=== PATIENT | female | born 1950 | race Caucasian/White ===

== ENCOUNTER 2018-04-03 20:30 | Emergency (ER) | payer MEDICARE, MEDICAID ==
[2018-04-03] MEDS ORDERED: Albuterol-Ipratrop 3 mg / 0.5 (3 ml) UD ONE ×2 (20:42→20:53)
[2018-04-03 20:46] VITALS: TEMP 98
[2018-04-03] MEDS ORDERED: Albuterol-Ipratrop 3 mg / 0.5 (3 ml) UD INH STA (20:46)
[2018-04-03] MEDS ORDERED: Magnesium Sulfate 1 gm in D5W 1 GM/100 ML BAG IVPB ONE (20:53)
[2018-04-03] MEDS: Magnesium Sulfate 1 gm in D5W 1 GM/100 ML BAG IVPB SCH ×2 (20:59→23:31)
[2018-04-03 21:13] LABS: BASO # 0.1 K/uL (0.0-0.2); BASO % 0.8 % (0.0-2.0); EOS # 0.7 K/uL (0.0-0.7); HEMOGLOBIN 11.1 g/dL (11.0-16.0); LYMPH # 1.9 K/uL (1.0-4.3); LYMPH % 15.2 % (20.0-40.0); MEAN CELL VOLUME 86.1 fL (81.0-99.0); MEAN CORPUSCULAR HEMOGLOBIN 28.6 pg (27.0-31.0); MEAN CORPUSCULAR HGB CONC 33.3 g/dL (33.0-37.0); MEAN PLATELET VOLUME 8.6 fL (7.2-11.7); MONO # 0.9 K/uL (0.0-0.8); MONO % 6.9 % (0.0-10.0); NEUT # 8.9 K/uL (1.8-7.0); NEUT % 71.1 % (50.0-75.0); RBC 3.88 Mil/uL (3.80-5.20); RED CELL DISTRIBUTION WIDTH 12.4 % (11.5-14.5); WHITE BLOOD COUNT 12.5 K/uL (4.8-10.8)
--- NOTE | 2018-04-03 21:21 | C.PDOC ---
History Of Present Illness 67 y/o female presents to the ED complaining of shortness of breath and asthma exacerbation for 2 weeks, increasing today. Associated with a dry cough. Denies chest pain, fever, chills, vomiting, sputum production, hemoptysis, or other complaints. Additionally patient complains of chronic back pain secondary to herniated discs. Time Seen by Provider: 04/03/18 20:49 Chief Complaint (Nursing): Shortness Of Breath History Per: Patient History/Exam Limitations: no limitations Onset/Duration Of Symptoms: Days (x14) Current Symptoms Are (Timing): Worse Initiating Event: Upper Respiratory Illness Exacerbating Factor(s): Coughing Past Medical History Reviewed: Historical Data, Nursing Documentation, Vital Signs Vital Signs: Last Vital Signs Temp 98 F 04/03/18 20:37 Pulse 82 04/03/18 23:37 Resp 20 04/03/18 23:37 BP 180/72 H 04/03/18 23:37 Pulse Ox 98 04/03/18 23:37 - Medical History PMH: Asthma, Back Problems, Diabetes, HTN, Hypercholesterolemia Denies: Chronic Kidney Disease Surgical History: Cholecyst[facility] - [facility] INJECT/INFUSE NEC (06/05/14) Family History: States: [place], Diabetes, Hypertension - Social History Hx Alcohol Use: No Hx Substance Use: No - Immunization History Hx Tetanus Toxoid Vaccination: No Hx Influenza Vaccination: No Hx Pneumococcal Vaccination: No Review Of Systems Except As Marked, All Systems Reviewed And Found Negative. Constitutional: Negative for: Fever, Chills Cardiovascular: Negative for: Chest Pain Respiratory: Positive for: Cough, Shortness of Breath. Negative for: Hemoptysis , Sputum Gastrointestinal: Negative for: Nausea, Vomiting, Abdominal Pain Musculoskeletal: Positive for: Back Pain (chronic) Neurological: Negative for: Weakness, Headache, Dizziness Physical Exam - Physical Exam Appears: Non-toxic, No Acute Distress, Other (Morbidly obese) Skin: Normal Color, Warm, Dry Head: Atraumatic, Normacephalic Eye(s): bilateral: Normal Inspection, PERRL, EOMI Oral Mucosa: Moist Neck: Supple Chest: Symmetrical Cardiovascular: Rhythm Regular, No Murmur Respiratory: No Rales, No Rhonchi, Wheezing (Fine expiratory wheezing bilaterally) Gastrointestinal/Abdominal: Soft, No Tenderness, No Guarding Extremity: Normal ROM, Pedal Edema (Trace edema bilaterally), No Calf Tenderness , Capillary Refill (less than 2 sec) Pulses: Left Dorsalis Pedis: Normal, Right Dorsalis Pedis: Normal Neurological/Psych: Oriented x3, Normal Speech ED Course And Treatment - Laboratory Results Result Diagrams: 04/03/18 21:09 04/03/18 21:09 ECG: Interpreted By Me, Viewed By Me ECG Rhythm: Sinus Rhythm Interpretation Of ECG: Normal axis, normal intervals, with PVCs Rate From EC O2 Sat by Pulse Oximetry: 100 (NC) Pulse Ox Interpretation: Normal Medical Decision Making Medical Decision Making: Initial Impression: SOB, Asthma exacerbation Initial Plan: --EKG --CMP --Pro-BNP --Troponin I --CBC --Blood culture --Chest X-Ray --Duoneb x1 --Mag sulf 1 gm IV --Solu-Medrol 125 mg IVP --Reassessment and final disposition Disposition - Disposition Disposition Time: 23:00 Condition: FAIR - Clinical Impression Clinical Impression: Asthma exacerbation - Scribe Statement The provider has reviewed the documentation as recorded by the Bean Fam Provider Attestation: All medical record entries made by the Imeldaibruben were at my direction and personally dictated by me. I have reviewed the chart and agree that the record accurately reflects my personal performance of the history, physical exam, medical decision making, and the department course for this patient. I have also personally directed, reviewed, and agree with the discharge instructions and disposition.
[2018-04-03 21:43] LABS: CALCIUM 9.2 mg/dl (8.6-10.4); GFR NON-AFRICAN AMERICAN > 60
[2018-04-03 21:53] LABS: B-TYPE NATRIURETIC PEPTIDE 291 pg/mL (0-900)
[2018-04-03 21:56] LABS: ALBUMIN 4.4 g/dL (3.5-5.0); ALT/SGPT 25 U/L (9-52); AST/SGOT 39 U/L (14-36); BLOOD UREA NITROGEN 18 mg/dL (7-17)
[2018-04-03 22:03] VITALS: RESP 20
--- NOTE | 2018-04-03 23:03 | CP.PCM.HP ---
<Jacquie Castillo - Last Filed: 04/04/18 03:54> History of Present Illness - History of Present Illness History of Present Illness: History was obtained from patient and her daughter, Martha. Maria Guadalupe Pederson is a 37 yo female with a history of T2DM, OB, WILL, chronic LBP, HTN, and asthma who presents with SOB and back pain. Patient states that she always has issues with breathing but feels like it worsened over the past 2 weeks. She does not require supplemental O2 at home. She also endorses a cough that is usually dry but occasionally produces brown sputum. Denies fevers and chills. Denies sick contacts. Patient lives with her daughter and is essentially bedridden. She has chronic back pain and is supposed to be getting steroid injections next week. She stopped PT last month because it was too painful. The patient's daughter also reports that the patient is often noncompliant by missing many doctor's appointments. Patient endorses back pain throughout thoracic and lumbar region. The pain radiates down her legs (L>R). She also complains of chronic numbness and tingling of her legs, feet, and hands. The patient is unable to sleep lying flat, and she typically requires 5 pillows. The daughter reports frequently hearing the patient wake up gasping for air. 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 PMH: Chronic pain T2DM Obesity WILL- noncompliant with CPAP HTN Asthma PSH: Cholecystectomy in 1999 Meds: Losartan/HCTZ 100/25 mg PO daily Metformin 1000 mg PO BID Lantus 80 units QHS Gabapentin 800 mg PO BID Motrin 800 mg PO BID Albuterol 1 puff BID Albuterol nebulizer q4hrs PRN ?Muscle relaxant All: codeine- pruritic rash, sore throat FH: grandson- asthma SH: lives with daughter unemployed denies alcohol, tobacco, and drugs PMD: Dr. Zavala Pain: Cristobal Cardio: unknown Present on Admission - Present on Admission Any Indicators Present on Admission: No History of DVT/PE: No History of Uncontrolled Diabetes: No Urinary Catheter: No Decubitus Ulcer Present: No History Surgical Site Infection Following: None Review of Systems - Constitutional Constitutional: Daytime Sleepiness, Fatigue, Sleep Apnea. absent: Fever, Frequent Falls - EENT Eyes: absent: Blurred Vision, Change in Vision Ears: absent: Decreased Hearing Nose/Mouth/Throat: Nasal Congestion, Sore Throat - Cardiovascular Cardiovascular: Dyspnea, Dyspnea on Exertion, Pedal Edema. absent: Chest Pain, Palpitations - Respiratory Respiratory: Cough, Dyspnea on Exertion, Change in Mucous Color, Pain with Coughing. absent: Hemoptysis - Gastrointestinal Gastrointestinal: absent: Abdominal Pain, Constipation, Diarrhea, Dyspepsia, Nausea, Vomiting - Genitourinary Genitourinary: Urinary Incontinence, Urinary Urgency. absent: Difficulty Urinating, Dysuria, Hematuria - Reproductive: Female Reproductive:Female: Post Menopausal - Menstruation Menstruation: Post Menopausal - Musculoskeletal Musculoskeletal: Arthralgias, Back Pain, Numbness, Radiating Pain into Limb, Tingling - Integumentary Integumentary: absent: Lesions, Pruritus - Neurological Neurological: Numbness, Tingling, Weakness. absent: Frequent Falls, Headaches - Psychiatric Psychiatric: Anhedonia, Depression, Hopelessness - Endocrine Endocrine: Fatigue. absent: Palpitations - Hematologic/Lymphatic Hematologic: absent: Easy Bleeding, Easy Bruising, Lymphadenopathy Past Patient History - Infectious Disease Hx of Infectious Diseases: None - Tetanus Immunizations Tetanus Immunization: Unknown - Past Medical History & Family History Past Medical History?: Yes Past Family History: Reviewed and not pertinent - Past Social History Smoking Status: Never Smoked Chewing Tobacco Use: No Cigar Use: No Alcohol: None Drugs: Denies Home Situation {Lives}: With Family (daughter) Domestic Violence: Negative - CARDIAC Hx Hypercholesterolemia: Yes Hx Hypertension: Yes - PULMONARY Hx Asthma: Yes Hx Sleep Apnea: Yes - NEUROLOGICAL Hx Neurological Disorder: No - HEENT Hx HEENT Problems: No - RENAL Hx Chronic Kidney Disease: No - ENDOCRINE/METABOLIC Hx Endocrine Disorders: Yes Hx Diabetes Mellitus Type 2: Yes - HEMATOLOGICAL/ONCOLOGICAL Hx Blood Disorders: No - INTEGUMENTARY Hx Dermatological Problems: No - MUSCULOSKELETAL/RHEUMATOLOGICAL Hx Musculoskeletal Disorders: Yes Hx Arthritis: Yes Hx Back Pain: Yes Hx Herniated Disk: Yes Hx Osteoarthritis: Yes Hx Spinal Stenosis: Yes Hx Unsteady Gait: Yes - GASTROINTESTINAL Hx Gastrointestinal Disorders: No - GENITOURINARY/GYNECOLOGICAL Hx Genitourinary Disorders: No - PSYCHIATRIC Hx Substance Use: No - SURGICAL HISTORY Hx Cholecystectomy: Yes - ANESTHESIA Hx Anesthesia: Yes Hx Anesthesia Reactions: No Meds Home Medications: Home Medication List Medication Instructions Recorded Confirmed Type Methylprednisolone [Medrol Dose 4 mg PO DAILY #21 mg 04/04/18 Rx Pack (21 tabs)] Pantoprazole Sodium [Protonix] 40 mg PO DAILY #30 ect 04/04/18 Rx traMADol [Ultram] 25 mg PO Q8 #20 tab 04/04/18 Rx Allergies/Adverse Reactions: Allergies Allergy/AdvReac Type Severity Reaction Status Date / Time codeine Allergy ITCHING Verified 04/03/18 20:43 Physical Exam - Constitutional Appears: Non-toxic, In Acute Distress - Head Exam Head Exam: ATRAUMATIC, NORMAL INSPECTION, NORMOCEPHALIC - Eye Exam Eye Exam: EOMI, Normal appearance, PERRL - ENT Exam ENT Exam: Mucous Membranes Moist, Normal Exam - Neck Exam Neck exam: Positive for: Normal Inspection - Respiratory Exam Respiratory Exam: Clear to Auscultation Bilateral - Cardiovascular Exam Cardiovascular Exam: REGULAR RHYTHM, +S1, +S2 - GI/Abdominal Exam GI & Abdominal Exam: Normal Bowel Sounds, Soft. absent: Tenderness Additional comments: obese - Rectal Exam Rectal Exam: Deferred - Extremities Exam Extremities exam: Positive for: pedal edema (1+), pedal pulses present - Back Exam Back exam: paraspinal tenderness Additional comments: kyphotic - Neurological Exam Neurological exam: Alert, CN II-XII Intact, Oriented x3 - Psychiatric Exam Psychiatric exam: Anxious, Depressed - Skin Skin Exam: Dry, Intact, Normal Color, Warm Results - Vital Signs Recent Vital Signs: Last Vital Signs Temp 98 F 04/03/18 20:37 Pulse 86 04/03/18 22:02 Resp 20 04/03/18 22:02 BP 186/75 H 04/03/18 22:02 Pulse Ox 98 04/03/18 22:02 - Labs Result Diagrams: 04/03/18 21:09 04/03/18 21:09 Labs: Laboratory Results - last 24 hr 04/03/18 04/03/18 21:09 21:09 WBC 12.5 H RBC 3.88 Hgb 11.1 Hct 33.4 L MCV 86.1 MCH 28.6 MCHC 33.3 RDW 12.4 Plt Count 322 MPV 8.6 Neut % (Auto) 71.1 Lymph % (Auto) 15.[address] [place] % (Auto) 6.9 Eos % (Auto) 6.0 H Baso % (Auto) 0.8 Neut # (Auto) 8.9 H Lymph # (Auto) 1.9 [place] # (Auto) 0.9 H Eos # (Auto) 0.7 Baso # (Auto) 0.1 Sodium 134 Potassium 4.7 Chloride 98 Carbon Dioxide 21 L Anion Gap 20 BUN 18 H Creatinine 0.7 Est GFR ( Amer) > 60 Est GFR (Non-Af Amer) > 60 Random Glucose 148 H Calcium 9.2 Total Bilirubin 0.7 AST 39 H ALT 25 Alkaline Phosphatase 85 Troponin I < 0.0120 NT-Pro-B Natriuret Pep 291 Total Protein 9.1 H Albumin 4.4 Globulin 4.6 H Albumin/Globulin Ratio 1.0 Assessment & Plan - Assessment and Plan (Free Text) Assessment: Patient is a 67 yo female with chronic pain who presented with SOB and back pain. Patient was not in respiratory distress and CXR did not demonstrated acute disease. Patient had significant back pain radiating to her legs. Concluded SOB 2/2 pain. Plan: SOB with h/o asthma - WBC 12.5 - O2 sat 100% on RA - No accessory muscle use - CXR: no acute/active disease - Duoneb x2 - Mg sulfate 1 g x1 - Albuterol nebulizer q4hrs PRN - Albuterol inhaler BID Back pain - Discontinue Motrin - Gabapentin 800 mg PO BID - Toradol 30 mg x1 - Solu-medrol 125 mg x1 - Start tramadol 25 mg PO q8hrs PRN - PT consult WILL- sleep study ~3 months ago, 2/2 obesity - CPAP- encouraged patient to get machine - Encouraged patient to make lifestyle changes- diet, exercise HTN, chronic, poorly controlled - Losartan/HCTZ 100/25 mg PO daily T2DM, chronic - Metformin 1000 mg PO BID - Lantus 80 units QHS - ISS - Hypoglycemia protocol IVF: not indicated GI ppx: Protonix 40 mg PO daily VTE ppx: SCDs, Lovenox 40 mg SC daily Diet: heart healthy, low carb, low sodium Code status: full code <Nick Kaye P - Last Filed: 04/10/18 07:33> Results - Vital Signs Recent Vital Signs: Last Vital Signs Temp 98 F 04/03/18 20:37 Pulse 92 H 08/25/18 01:51 Resp 20 04/04/18 01:51 BP 123/75 04/04/18 01:51 Pulse Ox 98 04/04/18 01:51 - Labs Result Diagrams: 04/03/18 21:09 04/03/18 21:09 Attending/Attestation - Attestation I have personally seen and examined this patient.: Yes I have fully participated in the care of the patient.: Yes I have reviewed all pertinent clinical information: Yes Notes (Text): See note on the same day of admission. 04/10/18 07:32
[2018-04-03] MEDS ORDERED: Dextrose 50% SYRINGE Inj (50 ml) IV PRN (23:11)
[2018-04-03] MEDS ORDERED: Glucagon Recombinant 1 mg Inj IM PRN (23:11)
[2018-04-04] MEDS ORDERED: Tramadol 25 mg PO STA (00:37)
[2018-04-04 01:52] VITALS: BP 123/75; PULSE 92; O2SAT 98
--- NOTE | 2018-04-04 04:00 | CP.PCM.DIS ---
<Jacquie Castillo - Last Filed: 04/04/18 03:55> Provider - Provider Date of Admission: 04/03/18 22:56 Attending physician: Nick Kaye MD Primary care physician: Dr. Zavala Consults: none Time Spent in preparation of Discharge (in minutes): 45 Diagnosis - Discharge Diagnosis (1) Chronic back pain Status: Chronic Priority: High (2) SOB (shortness of breath) Status: Resolved Priority: High (3) WILL (obstructive sleep apnea) Status: Chronic Priority: Medium (4) T2DM (type 2 diabetes mellitus) Status: Chronic Priority: Medium (5) HTN (hypertension) Status: Chronic Priority: Medium Hospital Course - Lab Results Lab Results: Most Recent Lab Values WBC 12.5 K/uL (4.8-10.8) H 04/03/18 21:09 RBC 3.88 Mil/uL (3.80-5.20) 04/03/18 21:09 Hgb 11.1 g/dL (11.0-16.0) 04/03/18 21:09 Hct 33.4 % (34.0-47.0) L 04/03/18 21:09 MCV 86.1 fL (81.0-99.0) 04/03/18 21:09 MCH 28.6 pg (27.0-31.0) 04/03/18 21:09 MCHC 33.3 g/dL (33.0-37.0) 04/03/18 21:09 RDW 12.4 % (11.5-14.5) 04/03/18 21:09 Plt Count 322 K/uL (130-400) 04/03/18 21:09 MPV 8.6 fL (7.2-11.7) 04/03/18 21:09 Neut % (Auto) 71.1 % (50.0-75.0) 04/03/18 21:09 Lymph % (Auto) 15.2 % (20.0-40.0) L 04/03/18 21:09 [place] % (Auto) 6.9 % (0.0-10.0) 04/03/18 21:09 Eos % (Auto) 6.0 % (0.0-4.0) H 04/03/18 21:09 Baso % (Auto) 0.8 % (0.0-2.0) 04/03/18 21:09 Neut # (Auto) 8.9 K/uL (1.8-7.0) H 04/03/18 21:09 Lymph # (Auto) 1.9 K/uL (1.0-4.3) 04/03/18 21:09 [place] # (Auto) 0.9 K/uL (0.0-0.8) H 04/03/18 21:09 Eos # (Auto) 0.7 K/uL (0.0-0.7) 04/03/18 21:09 Baso # (Auto) 0.1 K/uL (0.0-0.2) 04/03/18 21:09 Sodium 134 mmol/L (132-148) 04/03/18 21:09 Potassium 4.7 mmol/L (3.6-5.2) 04/03/18 21:09 Chloride 98 mmol/L (98-107) 04/03/18 21:09 Carbon Dioxide 21 mmol/L (22-30) L 04/03/18 21:09 Anion Gap 20 (10-20) 04/03/18 21:09 BUN 18 mg/dL (7-17) H 04/03/18 21:09 Creatinine 0.7 mg/dL (0.7-1.2) 04/03/18 21:09 Est GFR ( Amer) > 60 04/03/18 21:09 Est GFR (Non-Af Amer) > 60 04/03/18 21:09 Random Glucose 148 mg/dL (65-105) H 04/03/18 21:09 Calcium 9.2 mg/dl (8.6-10.4) 04/03/18 21:09 Total Bilirubin 0.7 mg/dL (0.2-1.3) 04/03/18 21:09 AST 39 U/L (14-36) H 04/03/18 21:09 ALT 25 U/L (9-52) 04/03/18 21:09 Alkaline Phosphatase 85 U/L (38-126) 04/03/18 21:09 Troponin I < 0.0120 ng/mL (0.00-0.120) 04/03/18 21:09 NT-Pro-B Natriuret Pep 291 pg/mL (0-900) 04/03/18 21:09 Total Protein 9.1 g/dL (6.3-8.3) H 04/03/18 21:09 Albumin 4.4 g/dL (3.5-5.0) 04/03/18 21:09 Globulin 4.6 gm/dL (2.2-3.9) H 04/03/18 21:09 Albumin/Globulin Ratio 1.0 (1.0-2.1) 04/03/18 21:09 - Hospital Course Hospital Course: Maria Guadalupe Pederson is a 37 yo female with a history of T2DM, OB, WILL, chronic LBP, HTN, and asthma who presents with SOB and back pain. Patient states that she always has issues with breathing but feels like it worsened over the past 2 weeks. She does not require supplemental O2 at home. She also endorses a cough that is usually dry but occasionally produces brown sputum. Denies fevers and chills. Denies sick contacts. Patient lives with her daughter and is essentially bedridden. She has chronic back pain and is supposed to be getting steroid injections next week. She stopped PT last month because it was too painful. The patient's daughter also reports that the patient is often noncompliant by missing many doctor's appointments. Patient endorses back pain throughout thoracic and lumbar region. The pain radiates down her legs (L>R). She also complains of chronic numbness and tingling of her legs, feet, and hands. The patient is unable to sleep lying flat, and she typically requires 5 pillows. The daughter reports frequently hearing the patient wake up gasping for air. 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 It was explained to the patient and her family that she does not appear to have an asthma exacerbation or PNA and that her SOB is likely 2/2 her chronic issues of pain. Thus, admission was offered to the patient for systemic steroids if she desired. Patient was given Solu-Medrol, toradol, and tramadol in the ED, which were well tolerated. Prior to the patient moving from the ED to the floor , she decided she would rather go home and keep her appointment with her pain management physician for localized steroid injections. The patient was discharged with tramadol, Medrol dose pack, and Protonix. Upon discharge, the patient did not have shortness of breath. Her vitals were stable. She tolerated all medications well without side effects. Discharge Exam - Head Exam Head Exam: ATRAUMATIC, NORMAL INSPECTION, NORMOCEPHALIC - Eye Exam Eye Exam: EOMI, Normal appearance - ENT Exam ENT Exam: Mucous Membranes Moist, Normal Exam - Neck Exam Neck exam: Normal Inspection - Respiratory Exam Respiratory Exam: Clear to PA & Lateral, NORMAL BREATHING PATTERN - Cardiovascular Exam Cardiovascular Exam: REGULAR RHYTHM, +S1, +S2 - GI/Abdominal Exam GI & Abdominal Exam: Normal Bowel Sounds, Soft, Unremarkable. absent: Tenderness Additional comments: obese - Rectal Exam Rectal Exam: Deferred - Extremities Exam Extremities exam: normal capillary refill, pedal edema (1+), pedal pulses present - Back Exam Back exam: paraspinal tenderness, tenderness - Neurological Exam Neurological exam: Alert, CN II-XII Intact, Oriented x3 - Psychiatric Exam Psychiatric exam: Normal Affect, Normal Mood - Skin Skin Exam: Dry, Intact, Normal Color, Warm Discharge Plan - Discharge Medications Prescriptions: Methylprednisolone [Medrol Dose Pack (21 tabs)] 4 mg PO DAILY #21 mg Pantoprazole Sodium [Protonix] 40 mg PO DAILY #30 ect traMADol [Ultram] 25 mg PO Q8 #20 tab - Follow Up Plan Condition: FAIR Disposition: HOME/ ROUTINE Patient education suggested?: Yes Additional Instructions: Patient is cleared for discharge as per Dr. Kaye. Patient is instructed to keep her appointment with her pain management physician, Dr. Jain, for steroid injections. The patient will be sent home with the following prescriptions: Medrol dose pack- take as instructed on package Tramadol 25 mg- take one by mouth every 8 hours as needed for pain Protonix 40 mg- take one by mouth daily The patient should NOT take Motrin while taking steroids. The patient should check her blood sugar levels before each meal and at night as steroids tend to increase blood glucose. The patient was encouraged to follow-up with the physician with whom she completed her sleep study with as it is very important to obtain a CPAP machine for her sleep apnea. The patient was also encouraged to restart physical therapy as soon as possible. If symptoms recur or worsen, the patient was advised to return to the ED. This was all discussed with the patient and her daughter, who acknowledge understanding and agree. <ApolinarkishasarayNick P - Last Filed: 04/10/18 07:34> Hospital Course - Lab Results Lab Results: Micro Results 04/03/18 23:31 Blood Blood Culture - Final NO GROWTH AFTER 5 DAYS 04/03/18 23:31 Blood Gram Stain - Final TEST NOT PERFORMED 04/03/18 21:00 Blood Blood Culture - Final NO GROWTH AFTER 5 DAYS 04/03/18 21:00 Blood Gram Stain - Final TEST NOT PERFORMED Most Recent Lab Values WBC 12.5 K/uL (4.8-10.8) H 04/03/18 21:09 RBC 3.88 Mil/uL (3.80-5.20) 04/03/18 21:09 Hgb 11.1 g/dL (11.0-16.0) 04/03/18 21:09 Hct 33.4 % (34.0-47.0) L 04/03/18 21:09 MCV 86.1 fL (81.0-99.0) 04/03/18 21:09 MCH 28.6 pg (27.0-31.0) 04/03/18 21:09 MCHC 33.3 g/dL (33.0-37.0) 04/03/18 21:09 RDW 12.4 % (11.5-14.5) 04/03/18 21:09 Plt Count 322 K/uL (130-400) 04/03/18 21:09 MPV 8.6 fL (7.2-11.7) 04/03/18 21:09 Neut % (Auto) 71.1 % (50.0-75.0) 04/03/18 21:09 Lymph % (Auto) 15.2 % (20.0-40.0) L 04/03/18 21:09 [place] % (Auto) 6.9 % (0.0-10.0) 04/03/18 21:09 Eos % (Auto) 6.0 % (0.0-4.0) H 04/03/18 21:09 Baso % (Auto) 0.8 % (0.0-2.0) 04/03/18 21:09 Neut # (Auto) 8.9 K/uL (1.8-7.0) H 04/03/18 21:09 Lymph # (Auto) 1.9 K/uL (1.0-4.3) 04/03/18 21:09 [place] # (Auto) 0.9 K/uL (0.0-0.8) H 04/03/18 21:09 Eos # (Auto) 0.7 K/uL (0.0-0.7) 04/03/18 21:09 Baso # (Auto) 0.1 K/uL (0.0-0.2) 04/03/18 21:09 Sodium 134 mmol/L (132-148) 04/03/18 21:09 Potassium 4.7 mmol/L (3.6-5.2) 04/03/18 21:09 Chloride 98 mmol/L (98-107) 04/03/18 21:09 Carbon Dioxide 21 mmol/L (22-30) L 04/03/18 21:09 Anion Gap 20 (10-20) 04/03/18 21:09 BUN 18 mg/dL (7-17) H 04/03/18 21:09 Creatinine 0.7 mg/dL (0.7-1.2) 04/03/18 21:09 Est GFR ( Amer) > 60 04/03/18 21:09 Est GFR (Non-Af Amer) > 60 04/03/18 21:09 Random Glucose 148 mg/dL (65-105) H 04/03/18 21:09 Calcium 9.2 mg/dl (8.6-10.4) 04/03/18 21:09 Total Bilirubin 0.7 mg/dL (0.2-1.3) 04/03/18 21:09 AST 39 U/L (14-36) H 04/03/18 21:09 ALT 25 U/L (9-52) 04/03/18 21:09 Alkaline Phosphatase 85 U/L (38-126) 04/03/18 21:09 Troponin I < 0.0120 ng/mL (0.00-0.120) 04/03/18 21:09 NT-Pro-B Natriuret Pep 291 pg/mL (0-900) 04/03/18 21:09 Total Protein 9.1 g/dL (6.3-8.3) H 08/24/18 21:09 Albumin 4.4 g/dL (3.5-5.0) 04/03/18 21:09 Globulin 4.6 gm/dL (2.2-3.9) H 04/03/18 21:09 Albumin/Globulin Ratio 1.0 (1.0-2.1) 04/03/18 21:09 Attending/Attestation - Attestation I have personally seen and examined this patient.: Yes I have fully participated in the care of the patient.: Yes I have reviewed all pertinent clinical information, including history, physical exam and plan: Yes
[2018-04-04] MEDS ORDERED: (Novolog) Insulin Aspart, Recombinant 100 u/ml 10 ml vial SC SCH (07:30)
[2018-04-04] MEDS ORDERED: Enoxaparin 40 mg Syringe SC SCH (10:00)
--- NOTE | 2018-04-04 10:13 | RAD ---
Date of service: 04/03/2018 PROCEDURE: CHEST RADIOGRAPH, 1 VIEW HISTORY: SOB COMPARISON: Chest radiographs 11/13/2013. Yes FINDINGS: LUNGS: No definite infiltrate bilaterally. PLEURA: No pneumothorax or pleural fluid seen. CARDIOVASCULAR: Prominence of the pulmonary vascular is questioned which may indicate pulmonary vascular congestion. Cardiac silhouette poorly evaluated. Cardiomegaly not excluded. OSSEOUS STRUCTURES: No significant abnormalities. VISUALIZED UPPER ABDOMEN: Normal. OTHER FINDINGS: None. IMPRESSION: Questionable pulmonary vascular congestion. Clinically correlate further. No airspace disease demonstrated bilaterally.
--- NOTE | 2018-04-06 11:26 | CARD ---
APPROVED REPORT Date of service: 04/03/2018 EKG Measurement Heart [id number] <Conclusion> Sinus rhythm with occasional premature ventricular complexes Otherwise normal ECG
== END 2018-04-04 01:00 | disposition home or self-care (01) ==
LOC: C.ER 20:30 → C.9E 22:56 → OBSVTOIN 22:56 → INTOOBSV 22:56 → C.3T 22:56 → UNDOADMOB 22:56 → C.3T 04-04 01:00 → UNDODISOB 04-04 01:00 → C.3T 04-04 01:54
DX: J45.901 Unspecified asthma with (acute) exacerbation (principal); E11.9 Type 2 diabetes mellitus without complications; E78.00 Pure hypercholesterolemia, unspecified; G47.33 Obstructive sleep apnea (adult) (pediatric); I10 Essential (primary) hypertension; Z74.01 Bed confinement status
CPT/HCPCS: 71045; 80053; 83880; 84484; 85025; 87040; 93005; 94640; 94770; 96365; 96366; 96375; 99285; J1885; J2930; J3475

== ENCOUNTER 2018-07-23 12:59 | Inpatient (IN) | payer MEDICARE, MEDICAID ==
--- NOTE | 2018-07-23 13:54 | C.PDOC ---
History Of Present Illness 67 y/o female presents to the ED accompanied by daughter, sent from PMD's office for severe intractable back pain. Patient reports pain to the entire back which radiates down bilateral legs. Daughter notes patient has had pain for years, however 2 weeks ago she fell getting out of bed and pain worsened. Patient states her legs feel weak, though she is able to move extremities. She also reports right shoulder and arm pain for 5 days, which she attributes to pulling herself out of bed. Daughter denies any LOC, nausea, vomiting, head trauma, numbness, tingling, focal weakness, or other complaints. Daughter also notes patient has normal urge to urinate but has difficulty making it to bathroom in time. Time Seen by Provider: 07/23/18 13:18 Chief Complaint (Nursing): Back Pain History Per: Family (Daughter at bedside) History/Exam Limitations: no limitations Onset/Duration Of Symptoms: Days Current Symptoms Are (Timing): Still Present Past Medical History Reviewed: Historical Data, Nursing Documentation, Vital Signs Vital Signs: Last Vital Signs Temp 98.3 F 07/23/18 13:12 Pulse 68 07/23/18 13:12 Resp 24 07/23/18 13:12 BP 106/59 L 07/23/18 13:12 Pulse Ox 100 07/23/18 13:12 - Medical History PMH: Arthritis, Asthma, Back Problems, Diabetes, HTN, Hypercholesterolemia, Sleep Apnea Denies: Chronic Kidney Disease Surgical History: Cholecystectomy - [facility] Procedures INJECT/INFUSE NEC (06/05/14) Family History: States: [place], Diabetes, Hypertension - Social History Hx Alcohol Use: No Hx Substance Use: No - Immunization History Hx Tetanus Toxoid Vaccination: No Hx Influenza Vaccination: No Hx Pneumococcal Vaccination: No Review Of Systems Except As Marked, All Systems Reviewed And Found Negative. Constitutional: Positive for: Other (+ Fall, no LOC or head trauma). Negative for: Fever, Chills Eyes: Negative for: Vision Change Cardiovascular: Negative for: Chest Pain, Palpitations Respiratory: Negative for: Shortness of Breath Gastrointestinal: Negative for: Nausea, Vomiting, Abdominal Pain, Diarrhea Genitourinary: Positive for: Incontinence. Negative for: Dysuria, Frequency, Hematuria Musculoskeletal: Positive for: Back Pain, Leg Pain Skin: Negative for: Rash Neurological: Positive for: Weakness (to lower extremities). Negative for: Numbness, Headache Physical Exam - Physical Exam Additional Physical Exam Comments: Constitutional: No acute distress. Head: Normocephalic. Atraumatic. Eyes: PERRL. ENT: Moist mucous membranes. Neck: Supple. Cardiovascular: Regular rate. Radial pulse 2+ bilaterally. Chest: No tenderness. Respiratory: Clear to auscultation bilaterally. GI: Soft. Nontender. Nondistended. Back: Lumbar midline and right paraspinal tenderness. Musculoskeletal: Right tenderness to the anterior shoulder. No tenderness to lower extremities. Skin: No rash. Neurologic: Oriented x 3. Cranial nerves II-XII intact. Sensation to light touch intact to bilateral legs and saddle area. ED Course And Treatment - Laboratory Results Result Diagrams: 07/23/18 14:09 07/23/18 14:09 O2 Sat by Pulse Oximetry: 100 (RA) Pulse Ox Interpretation: Normal - Other Rad CXR X-Ray: Read By Radiologist Interpretation: Accession No. : [id number]. Patient Name / ID : DELMA PRIDE / [id number]. Exam Date : 07/23/2018 14:11:56 ( Approved ). Study Comment : Sex / Age : F / 67Y. Creator : Hien Bynum MD. Dictator : Hien Bynum MD. Labor Specialist : Core Carrier : Hien Bynum MD. Approver2 : Report Date : 07/23/2018 14:56:26. My Comment : . HISTORY: Intractable back pain. COMPARISON: Chest x-ray performed 04/03/18. TECHNIQUE: Chest, one view. FINDINGS: Examination limited by habitus and hypoinflation. LUNGS: Biapical pleural thickening. Bilateral central vascular prominence. Mild pulmonary venous congestion versus vascular crowding due to hypoinflation. No focal consolidation. Please note that chest x-ray has limited sensitivity for the detection of pulmonary masses. PLEURA: No significant pleural effusion identified. No definite pneumothorax . CARDIOVASCULAR: Cardiomegaly. No significant atherosclerotic calcification present. OSSEOUS STRUCTURES: No acute osseous abnormality identified. V ISUALIZED UPPER ABDOMEN: Unremarkable. OTHER FINDINGS: None. IMPRESSION: Cardiomegaly. Biapical pleural thickening. Bilateral central vascular prominence. Mild pulmonary venous congestion versus vascular crowding due to hypoinflation. Shoulder x-ray X-Ray: Read By Radiologist Interpretation: Accession No. : [id number]. Patient Name / ID : DELMA PRIDE / [id number]. Exam Date : 07/23/2018 14:13:54 ( Approved ). Study Com ment : Sex / Age : F / 67Y. Creator : Sarah Reeves V. Dictator : Sarah Reeves V. Labor Specialist : Core Carrier : Sarah Reeves V. Approver2 : Report Date : 07/23/2018 15:07:44. My Comment : . Date of service: 07/23/2018. PROCEDURE: Radiographs of the Right Shoulder. HISTORY: R shoulder pain, fall days ago. COMPARISON: No prior. FINDINGS: BONES: No fracture line seen. This osseous hypertrophy bordering the humeral tuberosities. Hypertrophic spurring here is 1 consideration. Some calcific rotator cuff tendinopathy and/or calcific bursitis blending with the right humeral cortex is another. A chip ossific fragments are believes less likely-no gross bulging of the thin fat planes here noted. JOINTS: Minimal acromioclavicular and glenohumeral joint arthrosis. SOFT TISSUES: Normal. OTHER FINDINGS: None. IMPRESSION: Probable degenerative- type changes cortical hypertrophy spurring bordering the humeral tuberosities. Some near contiguous calcific bursitis center calcific rotator cuff tendinopathy cannot be excluded. Medical Decision Making Medical Decision Making: Impression: Per note from Greg Zavala, patient to be admitted for intractable back pain Initial Plan: --EKG --CMP --CPK --CBC --UA --Urine culture --Right shoulder x-ray --Chest x-ray Discussed with Dr. Wesley, accepts to hospitalist service. Patient's pain not able to be controlled as outpatient or in ED. Likely requires rehab placement. Disposition - Disposition Disposition: HOSPITALIZED Disposition Time: 15:50 Condition: STABLE Forms: [employer] ([place]) - Clinical Impression Clinical Impression: Intractable back pain - Scribe Statement The provider has reviewed the documentation as recorded by the Bean Fam Provider Attestation: All medical record entries made by the Bean were at my direction and personally dictated by me. I have reviewed the chart and agree that the record accurately reflects my personal performance of the history, physical exam, medical decision making, and the department course for this patient. I have also personally directed, reviewed, and agree with the discharge instructions and disposition.
[2018-07-23 14:16] LABS: BASO # 0.1 K/uL (0.0-0.2); EOS % 0.3 % (0.0-4.0); HEMOGLOBIN 10.8 g/dL (11.0-16.0); LYMPH # 1.5 K/uL (1.0-4.3); LYMPH % 12.2 % (20.0-40.0); MEAN CELL VOLUME 88.3 fL (81.0-99.0); MEAN CORPUSCULAR HEMOGLOBIN 29.7 pg (27.0-31.0); MEAN CORPUSCULAR HGB CONC 33.7 g/dL (33.0-37.0); MEAN PLATELET VOLUME 8.8 fL (7.2-11.7); MONO # 1.5 K/uL (0.0-0.8); MONO % 11.9 % (0.0-10.0); NEUT # 9.3 K/uL (1.8-7.0); NEUT % 74.6 % (50.0-75.0); RBC 3.64 Mil/uL (3.80-5.20); RED CELL DISTRIBUTION WIDTH 13.3 % (11.5-14.5); WHITE BLOOD COUNT 12.4 K/uL (4.8-10.8)
[2018-07-23 14:32] LABS: ALB/GLOB RATIO 0.9 (1.0-2.1); ALBUMIN 3.8 g/dL (3.5-5.0); ALT/SGPT 254 U/L (9-52); AST/SGOT 245 U/L (14-36); BLOOD UREA NITROGEN 28 mg/dL (7-17); CALCIUM 8.6 mg/dl (8.6-10.4); GFR NON-AFRICAN AMERICAN 55
--- NOTE | 2018-07-23 14:59 | RAD ---
HISTORY: Intractable back pain COMPARISON: Chest x-ray performed 04/03/18 TECHNIQUE: Chest, one view. FINDINGS: Examination limited by habitus and hypoinflation. LUNGS: Biapical pleural thickening. Bilateral central vascular prominence. Mild pulmonary venous congestion versus vascular crowding due to hypoinflation. No focal consolidation. Please note that chest x-ray has limited sensitivity for the detection of pulmonary masses. PLEURA: No significant pleural effusion identified. No definite pneumothorax . CARDIOVASCULAR: Cardiomegaly. No significant atherosclerotic calcification present. OSSEOUS STRUCTURES: No acute osseous abnormality identified. VISUALIZED UPPER ABDOMEN: Unremarkable. OTHER FINDINGS: None. IMPRESSION: Cardiomegaly. Biapical pleural thickening. Bilateral central vascular prominence. Mild pulmonary venous congestion versus vascular crowding due to hypoinflation.
--- NOTE | 2018-07-23 15:11 | RAD ---
Date of service: 07/23/2018 PROCEDURE: Radiographs of the Right Shoulder HISTORY: R shoulder pain, fall days ago COMPARISON: No prior. FINDINGS: BONES: No fracture line seen. This osseous hypertrophy bordering the humeral tuberosities. Hypertrophic spurring here is 1 consideration. Some calcific rotator cuff tendinopathy and/or calcific bursitis blending with the right humeral cortex is another. A chip ossific fragments are believes less likely-no gross bulging of the thin fat planes here noted. JOINTS: Minimal acromioclavicular and glenohumeral joint arthrosis. SOFT TISSUES: Normal. OTHER FINDINGS: None. IMPRESSION: Probable degenerative-type changes cortical hypertrophy spurring bordering the humeral tuberosities. Some near contiguous calcific bursitis center calcific rotator cuff tendinopathy cannot be excluded.
[2018-07-23] MEDS ORDERED: Morphine 4 MG/ML VIAL ONE (15:42)
--- NOTE | 2018-07-23 16:52 | CP.PCM.HP ---
<Reshma Oconnell - Last Filed: 07/23/18 18:07> History of Present Illness - History of Present Illness History of Present Illness: CC: Back pain Patient is a 67 year old female with a pmhx of chronic back pain 2/2 bulging/herniated discs, DM2, diabetic neuropathy, HTN, asthma who presents to the ED today at the request of her PMD for back pain s/p fall off bed 2 weeks ago. Pt reports that she fell off her bed onto a carpeted floor 2 weeks ago onto her entire body, including right shoulder, hitting her head. Patient denies LOC, however reports increasing right shoulder/lumbar back pain radiating bilaterally, and shooting carisa from low back to toes B/L. Daughter reports since fall, her mother has new onset urinary incontinence and is altered from baseline. Denies SAAB, chest pain, SOB, nausea, vomiting, dysuria, diarrhea. Present on Admission - Present on Admission Any Indicators Present on Admission: No Review of Systems - Constitutional Constitutional: Anorexia, Weakness. absent: Headache - EENT Eyes: absent: Blurred Vision - Cardiovascular Cardiovascular: absent: Chest Pain, Orthopnea - Respiratory Respiratory: absent: Dyspnea - Gastrointestinal Gastrointestinal: Constipation (chronic). absent: Abdominal Pain, Nausea - Genitourinary Genitourinary: Difficulty Urinating, Urinary Incontinence. absent: Dysuria - Musculoskeletal Musculoskeletal: Abnormal Gait, Back Pain, Radiating Pain into Limb - Neurological Neurological: Abnormal Gait, Confusion, Disequilibrium, Paresthesias - Psychiatric Psychiatric: Depression Past Patient History - Infectious Disease Hx of Infectious Diseases: None - Tetanus Immunizations Tetanus Immunization: Unknown - Past Medical History & Family History Past Medical History?: Yes - Past Social History Smoking Status: Never Smoked - CARDIAC Hx Hypercholesterolemia: Yes Hx Hypertension: Yes - PULMONARY Hx Asthma: Yes Hx Sleep Apnea: Yes - NEUROLOGICAL Hx Neurological Disorder: No - HEENT Hx HEENT Problems: No - RENAL Hx Chronic Kidney Disease: No - ENDOCRINE/METABOLIC Hx Endocrine Disorders: Yes Hx Diabetes Mellitus Type 2: Yes - HEMATOLOGICAL/ONCOLOGICAL Hx Blood Disorders: No - INTEGUMENTARY Hx Dermatological Problems: No - MUSCULOSKELETAL/RHEUMATOLOGICAL Hx Arthritis: Yes - GASTROINTESTINAL Hx Gastrointestinal Disorders: No - GENITOURINARY/GYNECOLOGICAL Hx Genitourinary Disorders: No - PSYCHIATRIC Hx Substance Use: No - SURGICAL HISTORY Hx Cholecystectomy: Yes - ANESTHESIA Hx Anesthesia: Yes Hx Anesthesia Reactions: No Meds Allergies/Adverse Reactions: Allergies Allergy/AdvReac Type Severity Reaction Status Date / Time codeine Allergy ITCHING Verified 07/23/18 13:17 Physical Exam - Constitutional Appears: Non-toxic, No Acute Distress - Head Exam Head Exam: ATRAUMATIC, NORMAL INSPECTION, NORMOCEPHALIC - Eye Exam Eye Exam: EOMI, Normal appearance - ENT Exam ENT Exam: Mucous Membranes Moist, Normal Exam - Neck Exam Neck exam: Positive for: Normal Inspection - Respiratory Exam Respiratory Exam: Clear to Auscultation Bilateral, NORMAL BREATHING PATTERN - Cardiovascular Exam Cardiovascular Exam: REGULAR RHYTHM, +S1, +S2. absent: Tachycardia - GI/Abdominal Exam GI & Abdominal Exam: Normal Bowel Sounds, Soft. absent: Distended - Extremities Exam Extremities exam: Positive for: normal inspection. Negative for: calf tenderness, pedal edema - Back Exam Back exam: tenderness (TTP [id number]) - Neurological Exam Neurological exam: Alert, Oriented x3 Additional comments: sendsation diminished B/L LE due to diabetic neuropathy. No saddle anesthesia - Psychiatric Exam Psychiatric exam: Normal Affect, Normal Mood - Skin Skin Exam: Dry, Intact, Normal Color, Warm Results - Vital Signs Recent Vital Signs: Last Vital Signs Temp 98.1 F 07/23/18 16:02 Pulse 78 07/23/18 15:57 Resp 18 07/23/18 15:57 BP 131/53 L 07/23/18 15:57 Pulse Ox 100 07/23/18 15:59 - Labs Result Diagrams: 07/23/18 14:09 07/23/18 14:09 Labs: Laboratory Results - last 24 hr 07/23/18 07/23/18 07/23/18 14:09 14:09 16:15 WBC 12.4 H RBC 3.64 L Hgb 10.8 L Hct 32.2 L MCV 88.3 D MCH 29.7 MCHC 33.7 RDW 13.3 Plt Count 281 MPV 8.8 Neut % (Auto) 74.6 Lymph % (Auto) 12.2 L [place] % (Auto) 11.9 H Eos % (Auto) 0.3 Baso % (Auto) 1.0 Neut # (Auto) 9.3 H Lymph # (Auto) 1.5 [place] # (Auto) 1.5 H Eos # (Auto) 0.0 Baso # (Auto) 0.1 Sodium 126 L Potassium 4.4 Chloride 91 L Carbon Dioxide 21 L Anion Gap 18 BUN 28 H Creatinine 1.0 Est GFR ( Amer) > 60 Est GFR (Non-Af Amer) 55 POC Glucose (mg/dL) 132 H Random Glucose 153 H Calcium 8.6 Total Bilirubin 0.9 AST 245 H D ALT 254 H D Alkaline Phosphatase 124 Total Creatine Kinase 75 Total Protein 7.8 Albumin 3.8 Globulin 4.0 H Albumin/Globulin Ratio 0.9 L Assessment & Plan - Assessment and Plan (Free Text) Assessment: 67 year old female w/ pmhx of chronic back pain, HTN, DM2, asthma, admitted for evaluation and treatment of intractable back pain and new onset mental status changes and urinary incontinence s/p fall. Plan: AMS, r/o stroke/hemorrhage -CT head -neuro checks q8 -consider MRI pending findings Back pain -shoulder x-ray negative -x-ray hip/pelvis Urinary incontinence -UA Hyponatremia -NS @100 Ppx -DVT ppx, heparin -GI ppx, protonix -fall precaiutions -PT <Wang,Peter H - Last Filed: 07/23/18 18:49> Results - Vital Signs Recent Vital Signs: Last Vital Signs Temp 98.3 F 07/23/18 17:45 Pulse 58 L 07/23/18 17:45 Resp 20 07/23/18 17:45 BP 109/67 07/23/18 17:45 Pulse Ox 99 07/23/18 17:45 - Labs Result Diagrams: 07/23/18 14:09 07/23/18 14:09 Labs: Laboratory Results - last 24 hr 07/23/18 07/23/18 07/23/18 14:09 14:09 16:15 WBC 12.4 H RBC 3.64 L Hgb 10.8 L Hct 32.2 L MCV 88.3 D MCH 29.7 MCHC 33.7 RDW 13.3 Plt Count 281 MPV 8.8 Neut % (Auto) 74.6 Lymph % (Auto) 12.2 L [place] % (Auto) 11.9 H Eos % (Auto) 0.3 Baso % (Auto) 1.0 Neut # (Auto) 9.3 H Lymph # (Auto) 1.5 [place] # (Auto) 1.5 H Eos # (Auto) 0.0 Baso # (Auto) 0.1 Sodium 126 L Potassium 4.4 Chloride 91 L Carbon Dioxide 21 L Anion Gap 18 BUN 28 H Creatinine 1.0 Est GFR ( Amer) > 60 Est GFR (Non-Af Amer) 55 POC Glucose (mg/dL) 132 H Random Glucose 153 H Calcium 8.6 Total Bilirubin 0.9 AST 245 H D ALT 254 H D Alkaline Phosphatase 124 Total Creatine Kinase 75 Total Protein 7.8 Albumin 3.8 Globulin 4.0 H Albumin/Globulin Ratio 0.9 L Attending/Attestation - Attestation I have personally seen and examined this patient.: Yes I have fully participated in the care of the patient.: Yes I have reviewed all pertinent clinical information: Yes Notes (Text): 07/23/18 18:35 Medical attending: Patient was seen and examined by me. Agree with the above note by the resident The patient was seen and examined by me - she was already on 3T when I saw her Family member present at bedside and we encouraged her to bring in list of medications. There are chronic lumbar area pain and from what I understand she has been seeing pain managment in the past. The patient because I am told fell out of bed and hit her head - and per family has been AMS since then, patient needs a CT of the head to assess for potential ischemic CVA from that time or possibly a chronic head hemmorage. I wish the ER had already done this but we will order this now. The patient will also need a UA and UCS - this was ordered just not yet collected The patient is AAO x 3 however family remarks that many times the patient an swers questions wrongly and does not make sense to them. Na is slightly low - I asked family to bring in medication list. For now NSS and if it decreases more consider nephrology evaluation I explained to the family member that at some point if patient improves or is stable medically that we should try to get her to a RAD[facility] as it appears the patient has been very decondtioned for some time now and per family has been very bedbound. thank you Reece Wang
[2018-07-23] MEDS: Sodium Chloride 0.9% 1,000 ML IV SCH (17:20)
[2018-07-23] MEDS ORDERED: POLYETHYLENE GLYCOL 3350 17 GM/Dose PACKET PO ONE ×2 (17:45→19:15)
[2018-07-23 17:47] VITALS: RESP 20
[2018-07-23] MEDS ORDERED: Glucagon Recombinant 1 mg Inj IM PRN (17:59)
[2018-07-23] MEDS ORDERED: Dextrose 50% SYRINGE Inj (50 ml) IV PRN (17:59)
[2018-07-23] MEDS ORDERED: Albuterol-Ipratrop 3 mg / 0.5 (3 ml) UD INH PRN (18:01)
[2018-07-23 21:38] LABS: SQUAMOUS EPITHIAL 10 /hpf (0-5); URINE BACTERIA RARE (<OCC); URINE BILIRUBIN NEGATIVE (NEGATIVE); URINE BLOOD 1+ (NEGATIVE); URINE CLARITY Hazy (Clear); URINE COLOR Yellow (YELLOW); URINE GLUCOSE (UA) NORMAL (Normal); URINE LEUKOCYTE ESTERASE 3+ Leu/uL (Negative); URINE PROTEIN 1+ mg/dL (NEGATIVE)
[2018-07-23] MEDS: (Novolin R) Insulin Human Regular 100 units/ml vial SC SCH (21:52)
[2018-07-23] MEDS: Morphine 4 MG/ML VIAL IV PRN (23:20)
--- NOTE | 2018-07-24 07:03 | CARD ---
APPROVED REPORT Date of service: 07/23/2018 EKG Measurement Heart [id number] <Conclusion> Sinus bradycardia Otherwise normal ECG
[2018-07-24 07:28] LABS: BASO # 0.1 K/uL (0.0-0.2); BASO % 0.6 % (0.0-2.0); EOS # 0.2 K/uL (0.0-0.7); EOS % 1.9 % (0.0-4.0); HEMOGLOBIN 10.7 g/dL (11.0-16.0); LYMPH # 1.7 K/uL (1.0-4.3); LYMPH % 16.9 % (20.0-40.0); MEAN CELL VOLUME 88.4 fL (81.0-99.0); MEAN CORPUSCULAR HEMOGLOBIN 29.7 pg (27.0-31.0); MEAN CORPUSCULAR HGB CONC 33.6 g/dL (33.0-37.0); MEAN PLATELET VOLUME 9.1 fL (7.2-11.7); MONO # 1.2 K/uL (0.0-0.8); MONO % 11.8 % (0.0-10.0); NEUT # 6.9 K/uL (1.8-7.0); NEUT % 68.8 % (50.0-75.0); RBC 3.59 Mil/uL (3.80-5.20); RED CELL DISTRIBUTION WIDTH 13.2 % (11.5-14.5)
[2018-07-24 07:30] LABS: ALBUMIN 3.8 g/dL (3.5-5.0); ALT/SGPT 242 U/L (9-52); AST/SGOT 210 U/L (14-36); BLOOD UREA NITROGEN 24 mg/dL (7-17); CALCIUM 8.2 mg/dl (8.6-10.4); GFR NON-AFRICAN AMERICAN > 60
[2018-07-24] MEDS: Sodium Chloride 0.9% 1,000 ML IV SCH ×4 (07:40→21:38)
[2018-07-24] MEDS: (Novolin R) Insulin Human Regular 100 units/ml vial SC SCH ×4 (08:23→21:38)
[2018-07-24] MEDS: Pantoprazole 40 mg EC Tab PO SCH (10:59)
[2018-07-24] MEDS: Morphine 4 MG/ML VIAL IV PRN ×2 (11:01→18:14)
--- NOTE | 2018-07-24 11:24 | RAD ---
PROCEDURE: Radiographs of the pelvis and bilateral hips HISTORY: s/p fall COMPARISON: None. FINDINGS: BONES: There is diffuse bone demineralization. No acute displaced fracture or bone destruction. JOINTS: There is severe degenerative osteoarthrosis in the hip joints with complete loss of joint spaces, subarticular cystic changes and marginal osteophytes. SOFT TISSUES: Normal. OTHER FINDINGS: None. IMPRESSION: No acute displaced fracture or dislocation. Please note occult fractures cannot be excluded on plain radiographs. If there is a persistent clinical concern, an MRI of the hip may be performed for further evaluation.. Severe degenerative osteoarthrosis in the hip joints.
--- NOTE | 2018-07-24 11:39 | CT ---
Date of service: 07/24/2018 PROCEDURE: CT HEAD WITHOUT CONTRAST. HISTORY: AMS COMPARISON: None available. TECHNIQUE: Axial computed tomography images were obtained through the head/brain without intravenous contrast. Radiation dose: Total exam DLP = 1328.7 mGy-cm. This CT exam was performed using one or more of the following dose reduction techniques: Automated exposure control, adjustment of the mA and/or kV according to patient size, and/or use of iterative reconstruction technique. FINDINGS: HEMORRHAGE: No intracranial hemorrhage. BRAIN: No mass effect or edema. No atrophy or chronic microvascular ischemic changes. VENTRICLES: Unremarkable. No hydrocephalus. CALVARIUM: Unremarkable. PARANASAL SINUSES: Unremarkable as visualized. No significant inflammatory changes. MASTOID AIR CELLS: Unremarkable as visualized. No inflammatory changes. OTHER FINDINGS: None. IMPRESSION: Normal CT of the Head.
--- NOTE | 2018-07-24 13:03 | CP.PCM.PN ---
<Reshma Oconnell - Last Filed: 07/24/18 14:52> Subjective - Date & Time of Evaluation Date of Evaluation: 07/24/18 Time of Evaluation: 09:00 - Subjective Subjective: Patient examined at bedside. No acute events overnight. CT head and hip/pelvis x-rays deferred to morning by nursing, unsure why. Patient is visibly distressed crying and emotional, she reports having a very difficult night, pain was unbearable and kept her from sleeping or moving about. Patient reports continued right shoulder and low back pain radiating to legs. Denies chest pain, SOB, nausea, diarrhea. Pt reports no urinary incontinence although daughter reported this yesterday Objective - Vital Signs/Intake and Output Vital Signs (last 24 hours): Temp Pulse Resp BP Pulse Ox 97.1 F L 73 20 151/74 H 97 07/24/18 07:00 07/24/18 07:00 07/24/18 07:00 07/24/18 07:00 07/24/18 07:00 Intake and Output: 07/24/18 07/24/18 06:59 18:59 Intake Total 800 Balance 800 - Medications Medications: Current Medications Albuterol/Ipratropium (Duoneb 3 Mg/0.5 Mg (3 Ml) Ud) 3 ml INH RQ6 PRN PRN Reason: Shortness of Breath Dextrose (Dextrose 50% Inj) 0 ml IV STAT PRN; Protocol PRN Reason: Hypoglycemia Protocol Dextrose (Glutose 15) 0 gm PO ONCE PRN; Protocol PRN Reason: Hypoglycemia Protocol Docusate Sodium (Colace) 100 mg PO BID [facility] Last Admin: 07/24/18 10:57 Dose: 100 mg Glucagon (Glucagen Diagnostic Kit) 0 mg IM STAT PRN; Protocol PRN Reason: Hypoglycemia Protocol Heparin Sodium (Porcine) (Heparin) 5,000 units SC Q8 [facility] Sodium Chloride (Sodium Chloride 0.9%) 1,000 mls @ 100 mls/hr IV .Q10H [facility] Last Admin: 07/24/18 07:40 Dose: 100 mls/hr Dextrose (Dextrose 5% In Water 1000 Ml) 1,000 mls @ 0 mls/hr IV .Q0M PRN; Protocol PRN Reason: Hypoglycemia Protocol Influenza Virus Vaccine (Fluzone Quad [id number]) 60 mcg IM .ONCE ONE Stop: 07/25/18 10:01 Insulin Human Regular (Novolin R) 0 unit SC ACHS [facility]; Protocol Last Admin: 07/24/18 12:14 Dose: 2 units Ketorolac Tromethamine (Toradol) 30 mg IVP Q6 PRN PRN Reason: Pain, moderate (4-7) Last Admin: 07/24/18 04:01 Dose: 30 mg Morphine Sulfate (Morphine) 4 mg IV Q6 PRN PRN Reason: Pain, severe (8-10) Last Admin: 07/24/18 11:01 Dose: 4 mg Oxycodone HCl (Oxycontin Extended Release Tab) 10 mg PO Q12 [facility] Stop: 07/27/18 13:01 Pantoprazole Sodium (Protonix Ec Tab) 40 mg PO DAILY [facility] Last Admin: 07/24/18 10:59 Dose: 40 mg Pneumococcal Polyvalent Vaccine (Pneumovax 23 Vaccine) 0.5 ml IM .ONCE ONE Stop: 07/25/18 10:01 - Labs Labs: 07/24/18 07:09 07/24/18 07:09 - Eye Exam Eye Exam: EOMI, Normal appearance - Additional Findings Additional findings: - Constitutional Appears: Non-toxic, No Acute Distress - Head Exam Head Exam: ATRAUMATIC, NORMAL INSPECTION, NORMOCEPHALIC - Eye Exam Eye Exam: EOMI, Normal appearance - ENT Exam ENT Exam: Mucous Membranes Moist, Normal Exam - Neck Exam Neck exam: Positive for: Normal Inspection - Respiratory Exam Respiratory Exam: Clear to Auscultation Bilateral, NORMAL BREATHING PATTERN - Cardiovascular Exam Cardiovascular Exam: REGULAR RHYTHM, +S1, +S2. absent: Tachycardia - GI/Abdominal Exam GI & Abdominal Exam: Normal Bowel Sounds, Soft. absent: Distended - Extremities Exam Extremities exam: Positive for: normal inspection. Negative for: calf tenderness, pedal edema - Back Exam Back exam: tenderness (TTP [id number]) - Neurological Exam Neurological exam: Alert, Oriented x3 Additional comments: sendsation diminished B/L LE due to diabetic neuropathy. No saddle anesthesia - Psychiatric Exam Psychiatric exam: Normal Affect, Normal Mood - Skin Skin Exam: Dry, Intact, Normal Color, Warm Assessment and Plan - Assessment and Plan (Free Text) Assessment: 67 year old female w/ pmhx of chronic back pain, HTN, DM2, asthma, admitted for evaluation and treatment of intractable back pain and new onset mental status changes and urinary incontinence s/p fall Plan: AMS, r/o stroke/hemorrhage -CT head(07/24) negative for acute pathology -neuro checks q8 -consider MRI pending findings Back pain -shoulder x-ray(07/23) negative -x-ray hip/pelvis(07/24) negative Urinary incontinence -UA(07/23) leuk-esterase/RBC/WBC positive -rocephin started(07/24) Hyponatremia -NS @100 -nephro consult, Dr. Dominguez Constipation -miralax, colace -continue to monitor Ppx -DVT ppx, heparin -GI ppx, protonix -fall precaiutions -PT <Wang,Peter H - Last Filed: 07/24/18 18:10> Objective - Vital Signs/Intake and Output Vital Signs (last 24 hours): Temp Pulse Resp BP Pulse Ox 97.7 F 93 H 20 148/64 98 07/24/18 16:00 07/24/18 16:00 07/24/18 16:00 07/24/18 16:00 07/24/18 16:00 Intake and Output: 07/24/18 07/24/18 06:59 18:59 Intake Total 800 1100 Balance 800 1100 - Medications Medications: Current Medications Albuterol/Ipratropium (Duoneb 3 Mg/0.5 Mg (3 Ml) Ud) 3 ml INH RQ6 PRN PRN Reason: Shortness of Breath Dextrose (Dextrose 50% Inj) 0 ml IV STAT PRN; Protocol PRN Reason: Hypoglycemia Protocol Dextrose (Glutose 15) 0 gm PO ONCE PRN; Protocol PRN Reason: Hypoglycemia Protocol Docusate Sodium (Colace) 100 mg PO BID [facility] Last Admin: 07/24/18 18:06 Dose: 100 mg Glucagon (Glucagen Diagnostic Kit) 0 mg IM STAT PRN; Protocol PRN Reason: Hypoglycemia Protocol Heparin Sodium (Porcine) (Heparin) 5,000 units SC Q8 [facility] Sodium Chloride (Sodium Chloride 0.9%) 1,000 mls @ 100 mls/hr IV .Q10H [facility] Last Admin: 07/24/18 18:07 Dose: 100 mls/hr Dextrose (Dextrose 5% In Water 1000 Ml) 1,000 mls @ 0 mls/hr IV .Q0M PRN; Protocol PRN Reason: Hypoglycemia Protocol Ceftriaxone Sodium (Rocephin Iv 1 Gm Duplex) 50 mls @ 100 mls/hr IVPB Q24H [facility]; Protocol Last Admin: 07/24/18 16:06 Dose: 100 mls/hr Influenza Virus Vaccine (Fluzone Quad [id number]) 60 mcg IM .ONCE ONE Stop: 07/25/18 10:01 Insulin Human Regular (Novolin R) 0 unit SC ACHS [facility]; Protocol Last Admin: 07/24/18 18:07 Dose: 2 units Ketorolac Tromethamine (Toradol) 30 mg IVP Q6 PRN PRN Reason: Pain, moderate (4-7) Last Admin: 07/24/18 14:20 Dose: 30 mg Morphine Sulfate (Morphine) 4 mg IV Q6 PRN PRN Reason: Pain, severe (8-10) Last Admin: 07/24/18 11:01 Dose: 4 mg Oxycodone HCl (Oxycontin Extended Release Tab) 10 mg PO Q12 [facility] Stop: 07/27/18 13:01 Last Admin: 07/24/18 13:38 Dose: 10 mg Pantoprazole Sodium (Protonix Ec Tab) 40 mg PO DAILY [facility] Last Admin: 07/24/18 10:59 Dose: 40 mg Pneumococcal Polyvalent Vaccine (Pneumovax 23 Vaccine) 0.5 ml IM .ONCE ONE Stop: 07/25/18 10:01 - Labs Labs: 07/24/18 07:09 07/24/18 07:09 Attending/Attestation - Attestation I have personally seen and examined this patient.: Yes I have fully participated in the care of the patient.: Yes I have reviewed all pertinent clinical information, including history, physical exam and plan: Yes Notes (Text): 07/24/18 18:10 Medical attending: Patient was seen and examined by me, reviewed the above note by medical record retrieval specialist and agrees the above. This morning the patient was very emotional, she was crying and tearful. She explained that she was still having a lot of low back pain and also shoulder pain on the right side where she fell. Later on in the day she underwent a CT scan of the head and this was negative for any acute pathology, we might get MRI. Because of the ongoing hyponatremia we will get a nephrology evaluation. thank you Reece Wang
[2018-07-24] MEDS: oxyCODONE 10 mg ER Tab (oxyCONTIN) PO SCH ×2 (13:38→21:49)
[2018-07-24] MEDS ORDERED: POLYETHYLENE GLYCOL 3350 17 GM/Dose PACKET PO ONE (14:50)
[2018-07-24] MEDS: cefTRIAXone IV 1 gm in Dextros 50 ML IVPB SCH (16:06)
[2018-07-25 07:14] LABS: BASO # 0.1 K/uL (0.0-0.2); BASO % 0.7 % (0.0-2.0); EOS # 0.2 K/uL (0.0-0.7); EOS % 2.6 % (0.0-4.0); HEMOGLOBIN 10.4 g/dL (11.0-16.0); LYMPH # 1.5 K/uL (1.0-4.3); LYMPH % 16.5 % (20.0-40.0); MEAN CELL VOLUME 88.4 fL (81.0-99.0); MEAN CORPUSCULAR HEMOGLOBIN 29.6 pg (27.0-31.0); MEAN CORPUSCULAR HGB CONC 33.4 g/dL (33.0-37.0); MEAN PLATELET VOLUME 8.8 fL (7.2-11.7); MONO # 1.2 K/uL (0.0-0.8); MONO % 13.7 % (0.0-10.0); NEUT # 5.9 K/uL (1.8-7.0); NEUT % 66.5 % (50.0-75.0); RBC 3.53 Mil/uL (3.80-5.20); RED CELL DISTRIBUTION WIDTH 13.3 % (11.5-14.5); WHITE BLOOD COUNT 8.9 K/uL (4.8-10.8)
--- NOTE | 2018-07-25 07:23 | CP.PCM.PN ---
<Reshma Oconnell - Last Filed: 07/25/18 11:01> Subjective - Date & Time of Evaluation Date of Evaluation: 07/25/18 Time of Evaluation: 07:30 - Subjective Subjective: Patient examined at bedside, resting comfortable. No acute events overnight. Patient becomes emotionally distressed during encounter, begins crying. Reports she is upset and wishes to discuss the issue later. Reports slight improvement in pain, but says pain is still most severe in right shoulder and back and left hip. Pt reports she has still not had a BM and agrees to try an enema. Denies chest pain, SOB, abd pain, nausea. Objective - Vital Signs/Intake and Output Vital Signs (last 24 hours): Temp Pulse Resp BP Pulse Ox 98.1 F 89 20 156/69 H 100 07/25/18 00:00 07/25/18 00:00 07/25/18 00:00 07/25/18 00:00 07/25/18 00:00 Intake and Output: 07/25/18 07/25/18 06:59 18:59 Intake Total 1200 Balance 1200 - Medications Medications: Current Medications Albuterol/Ipratropium (Duoneb 3 Mg/0.5 Mg (3 Ml) Ud) 3 ml INH RQ6 PRN PRN Reason: Shortness of Breath Dextrose (Dextrose 50% Inj) 0 ml IV STAT PRN; Protocol PRN Reason: Hypoglycemia Protocol Dextrose (Glutose 15) 0 gm PO ONCE PRN; Protocol PRN Reason: Hypoglycemia Protocol Docusate Sodium (Colace) 100 mg PO BID [facility] Last Admin: 07/24/18 18:06 Dose: 100 mg Glucagon (Glucagen Diagnostic Kit) 0 mg IM STAT PRN; Protocol PRN Reason: Hypoglycemia Protocol Heparin Sodium (Porcine) (Heparin) 5,000 units SC Q8 [facility] Sodium Chloride (Sodium Chloride 0.9%) 1,000 mls @ 100 mls/hr IV .Q10H [facility] Last Admin: 07/24/18 21:38 Dose: Not Given Dextrose (Dextrose 5% In Water 1000 Ml) 1,000 mls @ 0 mls/hr IV .Q0M PRN; Protocol PRN Reason: Hypoglycemia Protocol Ceftriaxone Sodium (Rocephin Iv 1 Gm Duplex) 50 mls @ 100 mls/hr IVPB Q24H [facility]; Protocol Last Admin: 07/24/18 16:06 Dose: 100 mls/hr Influenza Virus Vaccine (Fluzone Quad [id number]) 60 mcg IM .ONCE ONE Stop: 07/25/18 10:01 Insulin Human Regular (Novolin R) 0 unit SC ACHS [facility]; Protocol Last Admin: 07/24/18 21:38 Dose: Not Given Ketorolac Tromethamine (Toradol) 30 mg IVP Q6 PRN PRN Reason: Pain, moderate (4-7) Last Admin: 07/24/18 14:20 Dose: 30 mg Morphine Sulfate (Morphine) 4 mg IV Q6 PRN PRN Reason: Pain, severe (8-10) Last Admin: 07/24/18 18:14 Dose: 4 mg Oxycodone HCl (Oxycontin Extended Release Tab) 10 mg PO Q12 [facility] Stop: 07/27/18 13:01 Last Admin: 07/24/18 21:49 Dose: 10 mg Pantoprazole Sodium (Protonix Ec Tab) 40 mg PO DAILY [facility] Last Admin: 07/24/18 10:59 Dose: 40 mg Pneumococcal Polyvalent Vaccine (Pneumovax 23 Vaccine) 0.5 ml IM .ONCE ONE Stop: 07/25/18 10:01 - Labs Labs: 07/25/18 07:04 07/24/18 07:09 - Constitutional Appears: Non-toxic, No Acute Distress - Head Exam Head Exam: ATRAUMATIC, NORMAL INSPECTION, NORMOCEPHALIC - Eye Exam Eye Exam: EOMI, Normal appearance - ENT Exam ENT Exam: Mucous Membranes Moist, Normal Exam - Neck Exam Neck Exam: Normal Inspection - Respiratory Exam Respiratory Exam: Clear to Ausculation Bilateral, NORMAL BREATHING PATTERN - Cardiovascular Exam Cardiovascular Exam: REGULAR RHYTHM, +S1, +S2 - GI/Abdominal Exam GI & Abdominal Exam: Soft, Normal Bowel Sounds. absent: Tenderness - Extremities Exam Extremities Exam: Normal Capillary Refill, Normal Inspection. absent: Pedal Edema - Back Exam Back Exam: tenderness - Neurological Exam Neurological Exam: Alert, Awake, Oriented x3 Neuro motor strength exam: Left Upper Extremity: 3, Right Upper Extremity: 2/1, Left Lower Extremity: 2/1, Right Lower Extremity: 2/1 - Psychiatric Exam Psychiatric exam: Depressed - Skin Skin Exam: Dry, Intact, Normal Color, Warm Assessment and Plan - Assessment and Plan (Free Text) Assessment: 67 year old female w/ pmhx of chronic back pain, HTN, DM2, asthma, admitted for evaluation and treatment of intractable back pain and new onset mental status changes and urinary incontinence s/p fall Plan: Back pain -shoulder x-ray(07/23) negative -x-ray hip/pelvis(07/24) negative -pain medication prn, morphine, toradol -long acting pain medication oxycontin 20mg BID up from 10mg yesterday AMS, r/o stroke/hemorrhage -CT head(07/24) negative for acute pathology -neuro checks q8 -consider MRI pending findings Urinary incontinence -UA(07/23) leuk-esterase/RBC/WBC positive -rocephin started(07/24) Hyponatremia, likely chronic -IVF stopped -lasix x1 -f/u urine osmolality -I/O -nephro consult, Dr. Dominguez Constipation -miralax, colace -fleet enema -continue to monitor Ppx -DVT ppx, heparin -GI ppx, protonix -fall precaiutions -PT Discussed w/ Dr. Wang -Reshma Oconnell, PGY-1 <Reece Wang H - Last Filed: 07/25/18 11:20> Objective - Vital Signs/Intake and Output Vital Signs (last 24 hours): Temp Pulse Resp BP Pulse Ox 97.6 F 80 20 170/80 H 100 07/25/18 08:12 07/25/18 08:12 07/25/18 08:12 07/25/18 10:08 07/25/18 08:12 Intake and Output: 07/25/18 07/25/18 06:59 18:59 Intake Total 1200 Balance 1200 - Medications Medications: Current Medications Albuterol/Ipratropium (Duoneb 3 Mg/0.5 Mg (3 Ml) Ud) 3 ml INH RQ6 PRN PRN Reason: Shortness of Breath Dextrose (Dextrose 50% Inj) 0 ml IV STAT PRN; Protocol PRN Reason: Hypoglycemia Protocol Dextrose (Glutose 15) 0 gm PO ONCE PRN; Protocol PRN Reason: Hypoglycemia Protocol Docusate Sodium (Colace) 100 mg PO BID [facility] Last Admin: 07/25/18 09:48 Dose: 100 mg Glucagon (Glucagen Diagnostic Kit) 0 mg IM STAT PRN; Protocol PRN Reason: Hypoglycemia Protocol Heparin Sodium (Porcine) (Heparin) 5,000 units SC Q8 [facility] Dextrose (Dextrose 5% In Water 1000 Ml) 1,000 mls @ 0 mls/hr IV .Q0M PRN; Protocol PRN Reason: Hypoglycemia Protocol Ceftriaxone Sodium (Rocephin Iv 1 Gm Duplex) 50 mls @ 100 mls/hr IVPB Q24H [facility]; Protocol Last Admin: 07/24/18 16:06 Dose: 100 mls/hr Insulin Human Regular (Novolin R) 0 unit SC ACHS [facility]; Protocol Last Admin: 07/25/18 07:58 Dose: 3 units Ketorolac Tromethamine (Toradol) 30 mg IVP Q6 PRN PRN Reason: Pain, moderate (4-7) Last Admin: 07/24/18 14:20 Dose: 30 mg Morphine Sulfate (Morphine) 4 mg IV Q6 PRN PRN Reason: Pain, severe (8-10) Last Admin: 07/24/18 18:14 Dose: 4 mg Oxycodone HCl (Oxycontin Extended Release Tab) 20 mg PO Q12H [facility] Stop: 07/28/18 10:52 Pantoprazole Sodium (Protonix Ec Tab) 40 mg PO DAILY [facility] Last Admin: 07/25/18 09:48 Dose: 40 mg - Labs Labs: 07/25/18 07:04 07/25/18 07:04 Attending/Attestation - Attestation I have personally seen and examined this patient.: Yes I have fully participated in the care of the patient.: Yes I have reviewed all pertinent clinical information, including history, physical exam and plan: Yes Notes (Text): 07/25/18 11:18 Medical attending: Patient was seen and examined by me with the medical residents Today her affect was much happier - yesterday she was crying and upset. We placed patient on long acting oxycontin yesterday to help with the low back pain and she says she was able to sleep last night Will increase the dose more to see if she has more relief CT of the head was negative Hip and Pelvis Xray suggest she also has osteoarthitis ontop of her history of herniated disk Reece Wang
[2018-07-25 07:24] LABS: ALBUMIN 3.8 g/dL (3.5-5.0); ALT/SGPT 248 U/L (9-52); AST/SGOT 224 U/L (14-36); BLOOD UREA NITROGEN 20 mg/dL (7-17); CALCIUM 8.5 mg/dl (8.6-10.4); GFR NON-AFRICAN AMERICAN > 60
[2018-07-25] MEDS: (Novolin R) Insulin Human Regular 100 units/ml vial SC SCH ×4 (07:58→21:22)
[2018-07-25] MEDS: Sodium Chloride 0.9% 1,000 ML IV SCH (08:23)
[2018-07-25] MEDS ORDERED: Mineral Oil Enema 135 ml RC ONE (08:30)
[2018-07-25] MEDS: Pantoprazole 40 mg EC Tab PO SCH (09:48)
[2018-07-25] MEDS: oxyCODONE 10 mg ER Tab (oxyCONTIN) PO SCH ×3 (09:48→22:36)
--- NOTE | 2018-07-25 09:51 | CP.PCM.CON ---
History of Present Illness - History of Present Illness History of Present Illness: Patient is a 67 year old obese female with a pmhx of chronic back pain 2/2 bulging/herniated discs, DM2, diabetic neuropathy, HTN, asthma who is admitted for back pain s/p fall off bed 2 weeks ago. Patient denies LOC, however repo rts increasing right shoulder/lumbar back pain radiating bilaterally, and shooting pain from low back to toes B/L. Denies SAAB, chest pain, SOB, nausea, vomiting, dysuria, diarrhea. pain is little better now, worse on left side than right , no weakness renal consult requested for hyponatrmeia - pts sodium 126 on admission SHe was placed on D5W initially, and later switched to NS her sodium level today is 125, asymptomatic no nausea, vomiting or dizziness denies being thirsty , says drinks a lot of water PMHx - as above PSHx- none social- denies smoking, alcohol or drug use Family- no family history of kidney disease Review of Systems - Review of Systems Review of Systems: as per HPI, other than that 10 point ROS negative Past Patient History - Infectious Disease Hx of Infectious Diseases: None - Tetanus Immunizations Tetanus Immunization: Unknown - Past Medical History & Family History Past Medical History?: Yes - Past Social History Smoking Status: Never Smoked - CARDIAC Hx Hypercholesterolemia: Yes Hx Hypertension: Yes - PULMONARY Hx Asthma: Yes Hx Sleep Apnea: Yes - NEUROLOGICAL Hx Neurological Disorder: No - HEENT Hx HEENT Problems: No - RENAL Hx Chronic Kidney Disease: No - ENDOCRINE/METABOLIC Hx Diabetes Mellitus Type 2: Yes - HEMATOLOGICAL/ONCOLOGICAL Hx Blood Disorders: No - INTEGUMENTARY Hx Dermatological Problems: No - MUSCULOSKELETAL/RHEUMATOLOGICAL Hx Arthritis: Yes - GASTROINTESTINAL Hx Constipation: Yes - GENITOURINARY/GYNECOLOGICAL Hx Incontinence: Yes - PSYCHIATRIC Hx Substance Use: No - SURGICAL HISTORY Hx Section: Yes Hx Cholecystectomy: Yes - ANESTHESIA Hx Anesthesia: Yes Hx Anesthesia Reactions: No Meds Allergies/Adverse Reactions: Allergies Allergy/AdvReac Type Severity Reaction Status Date / Time codeine Allergy ITCHING Verified 07/23/18 13:17 - Medications Medications: Current Medications Albuterol/Ipratropium (Duoneb 3 Mg/0.5 Mg (3 Ml) Ud) 3 ml INH RQ6 PRN PRN Reason: Shortness of Breath Dextrose (Dextrose 50% Inj) 0 ml IV STAT PRN; Protocol PRN Reason: Hypoglycemia Protocol Dextrose (Glutose 15) 0 gm PO ONCE PRN; Protocol PRN Reason: Hypoglycemia Protocol Docusate Sodium (Colace) 100 mg PO BID [facility] Last Admin: 07/24/18 18:06 Dose: 100 mg Glucagon (Glucagen Diagnostic Kit) 0 mg IM STAT PRN; Protocol PRN Reason: Hypoglycemia Protocol Heparin Sodium (Porcine) (Heparin) 5,000 units SC Q8 [facility] Sodium Chloride (Sodium Chloride 0.9%) 1,000 mls @ 100 mls/hr IV .Q10H [facility] Last Admin: 07/25/18 08:23 Dose: Not Given Dextrose (Dextrose 5% In Water 1000 Ml) 1,000 mls @ 0 mls/hr IV .Q0M PRN; Protocol PRN Reason: Hypoglycemia Protocol Ceftriaxone Sodium (Rocephin Iv 1 Gm Duplex) 50 mls @ 100 mls/hr IVPB Q24H [facility]; Protocol Last Admin: 07/24/18 16:06 Dose: 100 mls/hr Influenza Virus Vaccine (Fluzone Quad [id number]) 60 mcg IM .ONCE ONE Stop: 07/25/18 10:01 Insulin Human Regular (Novolin R) 0 unit SC ACHS [facility]; Protocol Last Admin: 07/25/18 07:58 Dose: 3 units Ketorolac Tromethamine (Toradol) 30 mg IVP Q6 PRN PRN Reason: Pain, moderate (4-7) Last Admin: 07/24/18 14:20 Dose: 30 mg Morphine Sulfate (Morphine) 4 mg IV Q6 PRN PRN Reason: Pain, severe (8-10) Last Admin: 07/24/18 18:14 Dose: 4 mg Oxycodone HCl (Oxycontin Extended Release Tab) 10 mg PO Q12 [facility] Stop: 07/27/18 13:01 Last Admin: 07/24/18 21:49 Dose: 10 mg Pantoprazole Sodium (Protonix Ec Tab) 40 mg PO DAILY [facility] Last Admin: 07/24/18 10:59 Dose: 40 mg Pneumococcal Polyvalent Vaccine (Pneumovax 23 Vaccine) 0.5 ml IM .ONCE ONE Stop: 07/25/18 10:01 Physical Exam - Constitutional Appears: Well, Non-toxic Additional comments: obese - Head Exam Head Exam: ATRAUMATIC, NORMOCEPHALIC - Eye Exam Eye Exam: EOMI, PERRL - ENT Exam ENT Exam: Mucous Membranes Moist - Neck Exam Neck exam: Positive for: Full Rom. Negative for: Lymphadenopathy - Respiratory Exam Respiratory Exam: Clear to Auscultation Bilateral. absent: Rhonchi, Wheezes - Cardiovascular Exam Cardiovascular Exam: REGULAR RHYTHM, +S1, +S2 - GI/Abdominal Exam GI & Abdominal Exam: Soft. absent: Tenderness - Extremities Exam Extremities exam: Positive for: full ROM, pedal edema - Neurological Exam Neurological exam: Alert, Oriented x3 - Psychiatric Exam Psychiatric exam: Normal Affect, Normal Mood - Skin Skin Exam: Normal Color, Warm Results - Vital Signs Recent Vital Signs: Last Vital Signs Temp 97.6 F 07/25/18 08:12 Pulse 80 07/25/18 08:12 Resp 20 07/25/18 08:12 BP 170/80 H 07/25/18 08:12 Pulse Ox 100 07/25/18 08:12 - Labs Result Diagrams: 07/25/18 07:04 07/25/18 07:04 Labs: Laboratory Results - last 24 hr 07/24/18 07/24/18 07/24/18 11:09 16:34 21:37 WBC RBC Hgb Hct MCV MCH MCHC RDW Plt Count MPV Neut % (Auto) Lymph % (Auto) Ford % (Auto) Eos % (Auto) Baso % (Auto) Neut # (Auto) Lymph # (Auto) Ford # (Auto) Eos # (Auto) Baso # (Auto) Sodium Potassium Chloride Carbon Dioxide Anion Gap BUN Creatinine Est GFR ( Amer) Est GFR (Non-Af Amer) POC Glucose (mg/dL) 181 H 164 H 217 H Random Glucose Calcium Total Bilirubin AST ALT Alkaline Phosphatase Total Protein Albumin Globulin Albumin/Globulin Ratio 07/25/18 07/25/18 07/25/18 07:04 07:04 07:29 WBC 8.9 RBC 3.53 L Hgb 10.4 L Hct 31.2 L MCV 88.4 MCH 29.6 MCHC 33.4 RDW 13.3 Plt Count 303 MPV 8.8 Neut % (Auto) 66.5 Lymph % (Auto) 16.5 L Ford % (Auto) 13.7 H Eos % (Auto) 2.6 Baso % (Auto) 0.7 Neut # (Auto) 5.9 Lymph # (Auto) 1.5 Ford # (Auto) 1.2 H Eos # (Auto) 0.2 Baso # (Auto) 0.1 Sodium 125 L Potassium 5.1 Chloride 94 L Carbon Dioxide 20 L Anion Gap 16 BUN 20 H Creatinine 0.7 Est GFR ( Amer) > 60 Est GFR (Non-Af Amer) > 60 POC Glucose (mg/dL) 218 H Random Glucose 235 H Calcium 8.5 L Total Bilirubin 0.8 AST 224 H ALT 248 H Alkaline Phosphatase 118 Total Protein 7.7 Albumin 3.8 Globulin 3.9 Albumin/Globulin Ratio 1.0 Assessment & Plan (1) Chronic hyponatremia Status: Acute (2) Obesity Status: Acute (3) Intractable back pain Status: Acute (4) HTN (hypertension) Status: Chronic Priority: Medium (5) WILL (obstructive sleep apnea) Status: Chronic Priority: Medium (6) T2DM (type 2 diabetes mellitus) Status: Chronic Priority: Medium - Assessment and Plan (Free Text) Plan: hyponatremia- asymptomatic, chronic likely secondary to pain and use of hypotonic fluids will stop iv fluids lasix one dose today check serum and urine osmolality record and document I and O labs in am
[2018-07-25] MEDS ORDERED: Influenza Vaccine 60 MCG/0.5 ML SYR (3 yr & up) IM ONE (10:00)
[2018-07-25] MEDS ORDERED: Pneumococcal 23-Valent Vaccine IM ONE (10:00)
[2018-07-25] MEDS: cefTRIAXone IV 1 gm in Dextros 50 ML IVPB SCH (16:08)
[2018-07-26 07:17] LABS: BASO # 0.1 K/uL (0.0-0.2); BASO % 0.7 % (0.0-2.0); EOS # 0.1 K/uL (0.0-0.7); HEMOGLOBIN 10.3 g/dL (11.0-16.0); LYMPH # 1.7 K/uL (1.0-4.3); LYMPH % 14.4 % (20.0-40.0); MEAN CELL VOLUME 88.1 fL (81.0-99.0); MEAN CORPUSCULAR HEMOGLOBIN 29.3 pg (27.0-31.0); MEAN CORPUSCULAR HGB CONC 33.3 g/dL (33.0-37.0); MEAN PLATELET VOLUME 8.4 fL (7.2-11.7); MONO # 1.9 K/uL (0.0-0.8); MONO % 16.2 % (0.0-10.0); NEUT # 7.8 K/uL (1.8-7.0); NEUT % 67.7 % (50.0-75.0); RBC 3.51 Mil/uL (3.80-5.20); RED CELL DISTRIBUTION WIDTH 13.3 % (11.5-14.5); WHITE BLOOD COUNT 11.6 K/uL (4.8-10.8)
[2018-07-26 07:24] LABS: ALBUMIN 3.7 g/dL (3.5-5.0); ALT/SGPT 201 U/L (9-52); AST/SGOT 155 U/L (14-36); BLOOD UREA NITROGEN 15 mg/dL (7-17); CALCIUM 8.7 mg/dl (8.6-10.4); GFR NON-AFRICAN AMERICAN > 60
--- NOTE | 2018-07-26 08:07 | CP.PCM.PN ---
<OconnellReshma - Last Filed: 07/26/18 16:07> Subjective - Date & Time of Evaluation Date of Evaluation: 07/26/18 Time of Evaluation: 08:25 - Subjective Subjective: Patient examined at bedside. No acute overnight events. Patient reports overall her pain has improved. Complains of continued constipation. Pt received several laxatives/enema but was unable to have a BM, asked for another enema today. Denies chest pain, SOB, abd pain, nausea. Objective - Vital Signs/Intake and Output Vital Signs (last 24 hours): Temp Pulse Resp BP Pulse Ox 98.9 F 70 20 144/84 98 07/26/18 00:00 07/26/18 00:00 07/26/18 00:00 07/26/18 00:00 07/26/18 00:00 Intake and Output: 07/26/18 07/26/18 06:59 18:59 Intake Total 500 Balance 500 - Medications Medications: Current Medications Albuterol/Ipratropium (Duoneb 3 Mg/0.5 Mg (3 Ml) Ud) 3 ml INH RQ6 PRN PRN Reason: Shortness of Breath Amlodipine Besylate (Norvasc) 10 mg PO DAILY [facility] Last Admin: 07/25/18 18:52 Dose: 10 mg Dextrose (Dextrose 50% Inj) 0 ml IV STAT PRN; Protocol PRN Reason: Hypoglycemia Protocol Dextrose (Glutose 15) 0 gm PO ONCE PRN; Protocol PRN Reason: Hypoglycemia Protocol Docusate Sodium (Colace) 100 mg PO BID [facility] Last Admin: 07/25/18 17:41 Dose: 100 mg Glucagon (Glucagen Diagnostic Kit) 0 mg IM STAT PRN; Protocol PRN Reason: Hypoglycemia Protocol Heparin Sodium (Porcine) (Heparin) 5,000 units SC Q8 [facility] Dextrose (Dextrose 5% In Water 1000 Ml) 1,000 mls @ 0 mls/hr IV .Q0M PRN; Protocol PRN Reason: Hypoglycemia Protocol Ceftriaxone Sodium (Rocephin Iv 1 Gm Duplex) 50 mls @ 100 mls/hr IVPB Q24H [facility]; Protocol Last Admin: 07/25/18 16:08 Dose: Not Given Insulin Human Regular (Novolin R) 0 unit SC ACHS [facility]; Protocol Last Admin: 07/25/18 21:22 Dose: Not Given Ketorolac Tromethamine (Toradol) 30 mg IVP Q6 PRN PRN Reason: Pain, moderate (4-7) Last Admin: 07/24/18 14:20 Dose: 30 mg Lactulose (Enulose) 20 gm PO HS [facility] Last Admin: 07/25/18 22:36 Dose: 20 gm Morphine Sulfate (Morphine) 4 mg IV Q6 PRN PRN Reason: Pain, severe (8-10) Last Admin: 07/24/18 18:14 Dose: 4 mg Oxycodone HCl (Oxycontin Extended Release Tab) 20 mg PO Q12H [facility] Stop: 07/28/18 10:52 Last Admin: 07/25/18 22:36 Dose: 20 mg Pantoprazole Sodium (Protonix Ec Tab) 40 mg PO DAILY [facility] Last Admin: 07/25/18 09:48 Dose: 40 mg - Labs Labs: 07/26/18 06:58 07/26/18 06:58 - Additional Findings Additional findings: - Constitutional Appears: Non-toxic, No Acute Distress - Head Exam Head Exam: ATRAUMATIC, NORMAL INSPECTION, NORMOCEPHALIC - Eye Exam Eye Exam: EOMI, Normal appearance - ENT Exam ENT Exam: Mucous Membranes Moist, Normal Exam - Neck Exam Neck Exam: Normal Inspection - Respiratory Exam Respiratory Exam: Clear to Ausculation Bilateral, NORMAL BREATHING PATTERN - Cardiovascular Exam Cardiovascular Exam: REGULAR RHYTHM, +S1, +S2 - GI/Abdominal Exam GI & Abdominal Exam: Soft, Normal Bowel Sounds. absent: Tenderness - Extremities Exam Extremities Exam: Normal Capillary Refill, Normal Inspection. absent: Pedal Edema - Back Exam Back Exam: tenderness - Neurological Exam Neurological Exam: Alert, Awake, Oriented x3 Neuro motor strength exam: Left Upper Extremity: 3, Right Upper Extremity: 2/1, Left Lower Extremity: 2/1, Right Lower Extremity: 2/1 - Psychiatric Exam Psychiatric exam: Depressed - Skin Skin Exam: Dry, Intact, Normal Color, Warm Assessment and Plan - Assessment and Plan (Free Text) Assessment: 67 year old female w/ pmhx of chronic back pain, HTN, DM2, asthma, admitted for evaluation and treatment of intractable back pain and new onset mental status changes and urinary incontinence s/p fall Plan: Back pain -shoulder x-ray(07/23) negative -x-ray hip/pelvis(07/24) negative -pain medication prn, morphine, toradol -long acting pain medication oxycontin 20mg BID up from 10mg on 07/24 AMS, r/o stroke/hemorrhage -CT head(07/24) negative for acute pathology -neuro checks q8 Urinary incontinence -UA(07/23) leuk-esterase/RBC/WBC positive -rocephin started(07/24) but stopped as good IV access could not be established -Cipro 250mg PO BID started(07/26), give x3 days Hyponatremia, likely chronic -improving, 127 up from 125 at admission -IVF stopped -nephro consult, Dr. Dominguez Constipation -miralax x2, colace 100 BID -fleet enema x2, lactluose -continue to monitor Ppx -DVT ppx, heparin -GI ppx, protonix -fall precaiutions -PT Discussed w/ Dr. Wang -Reshma Oconnell, PGY-1 <Reece Wang - Last Filed: 07/26/18 17:41> Objective - Vital Signs/Intake and Output Vital Signs (last 24 hours): Temp Pulse Resp BP Pulse Ox 98.0 F 74 20 185/67 H 96 07/26/18 16:00 07/26/18 16:00 07/26/18 16:00 07/26/18 16:00 07/26/18 16:00 Intake and Output: 07/26/18 07/26/18 06:59 18:59 Intake Total 500 200 Balance 500 200 - Medications Medications: Current Medications Albuterol/Ipratropium (Duoneb 3 Mg/0.5 Mg (3 Ml) Ud) 3 ml INH RQ6 PRN PRN Reason: Shortness of Breath Amlodipine Besylate (Norvasc) 10 mg PO DAILY [facility] Last Admin: 07/26/18 09:37 Dose: 10 mg Ciprofloxacin (Cipro) 250 mg PO BID [facility]; Protocol Last Admin: 07/26/18 17:34 Dose: 250 mg Dextrose (Dextrose 50% Inj) 0 ml IV STAT PRN; Protocol PRN Reason: Hypoglycemia Protocol Dextrose (Glutose 15) 0 gm PO ONCE PRN; Protocol PRN Reason: Hypoglycemia Protocol Docusate Sodium (Colace) 100 mg PO BID [facility] Last Admin: 07/26/18 17:33 Dose: 100 mg Glucagon (Glucagen Diagnostic Kit) 0 mg IM STAT PRN; Protocol PRN Reason: Hypoglycemia Protocol Heparin Sodium (Porcine) (Heparin) 5,000 units SC Q8 [facility] Dextrose (Dextrose 5% In Water 1000 Ml) 1,000 mls @ 0 mls/hr IV .Q0M PRN; Protocol PRN Reason: Hypoglycemia Protocol Insulin Human Regular (Novolin R) 0 unit SC ACHS [facility]; Protocol Last Admin: 07/26/18 16:34 Dose: 2 units Ketorolac Tromethamine (Toradol) 30 mg IVP Q6 PRN PRN Reason: Pain, moderate (4-7) Last Admin: 07/24/18 14:20 Dose: 30 mg Lactulose (Enulose) 20 gm PO HS [facility] Last Admin: 07/25/18 22:36 Dose: 20 gm Morphine Sulfate (Morphine) 4 mg IV Q6 PRN PRN Reason: Pain, severe (8-10) Last Admin: 07/24/18 18:14 Dose: 4 mg Oxycodone HCl (Oxycontin Extended Release Tab) 20 mg PO Q12H [facility] Stop: 07/28/18 10:52 Last Admin: 07/26/18 11:50 Dose: 20 mg Pantoprazole Sodium (Protonix Ec Tab) 40 mg PO DAILY [facility] Last Admin: 07/26/18 09:37 Dose: 40 mg - Labs Labs: 07/26/18 06:58 07/26/18 06:58 Attending/Attestation - Attestation I have personally seen and examined this patient.: Yes I have fully participated in the care of the patient.: Yes I have reviewed all pertinent clinical information, including history, physical exam and plan: Yes Notes (Text): 07/26/18 17:39 Medical attending: Patient was seen and examined by me. Agree with the above note by the resident The patient was not in any acute distress when I came and saw with the resident She still has the low back pain complaints - however less than previous - we had increased her long acting oxycontin. She may benfit from going to [facility]. Later her IV line fell out and she was a very difficult stick so we switched to PO abx Reece Wang
[2018-07-26] MEDS: (Novolin R) Insulin Human Regular 100 units/ml vial SC SCH ×4 (08:44→21:57)
[2018-07-26] MEDS: Pantoprazole 40 mg EC Tab PO SCH (09:37)
[2018-07-26] MEDS ORDERED: Mineral Oil Enema 135 ml RC ONE ×2 (11:39→13:45)
[2018-07-26] MEDS: oxyCODONE 10 mg ER Tab (oxyCONTIN) PO SCH ×2 (11:50→22:01)
[2018-07-26] MEDS: cefTRIAXone IV 1 gm in Dextros 50 ML IVPB SCH (16:11)
[2018-07-27 06:43] LABS: BASO # 0.1 K/uL (0.0-0.2); BASO % 0.5 % (0.0-2.0); EOS # 0.1 K/uL (0.0-0.7); EOS % 1.1 % (0.0-4.0); HEMOGLOBIN 10.7 g/dL (11.0-16.0); LYMPH # 1.5 K/uL (1.0-4.3); LYMPH % 13.1 % (20.0-40.0); MEAN CELL VOLUME 88.4 fL (81.0-99.0); MEAN CORPUSCULAR HEMOGLOBIN 29.7 pg (27.0-31.0); MEAN CORPUSCULAR HGB CONC 33.6 g/dL (33.0-37.0); MEAN PLATELET VOLUME 8.4 fL (7.2-11.7); MONO # 1.3 K/uL (0.0-0.8); MONO % 11.4 % (0.0-10.0); NEUT # 8.4 K/uL (1.8-7.0); NEUT % 73.9 % (50.0-75.0); RBC 3.59 Mil/uL (3.80-5.20); RED CELL DISTRIBUTION WIDTH 13.5 % (11.5-14.5); WHITE BLOOD COUNT 11.3 K/uL (4.8-10.8)
[2018-07-27 06:55] LABS: ALB/GLOB RATIO 0.9 (1.0-2.1); ALBUMIN 3.7 g/dL (3.5-5.0); ALT/SGPT 171 U/L (9-52); AST/SGOT 125 U/L (14-36); BLOOD UREA NITROGEN 20 mg/dL (7-17); CALCIUM 8.2 mg/dl (8.6-10.4); GFR NON-AFRICAN AMERICAN > 60
--- NOTE | 2018-07-27 07:56 | CP.PCM.PN ---
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 No acute overnight events reported. Continues to complain of pain in her shoulders bilaterally, R>L. Per daughter on phone, pain is chronic in nature. Patient also continues to endorse constipation. No other acute somatic complaints at this time. Patient became visibly upset, struggling with losing her independence and inability to perform ADLs due to chronic conditions and pain. 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 Denies fevers/chills, headaches, dizziness, chest pain, palpitations, shortness of breath, cough, abdominal pain, n/v/d, dysuria, or changes in stool. Objective - Vital Signs/Intake and Output Vital Signs (last 24 hours): Temp Pulse Resp BP Pulse Ox 98.5 F 83 20 169/92 H 98 07/27/18 00:00 07/27/18 00:00 07/27/18 00:00 07/27/18 00:00 07/27/18 00:00 Intake and Output: 07/27/18 07/27/18 06:59 18:59 Intake Total 250 Balance 250 - Medications Medications: Current Medications Albuterol/Ipratropium (Duoneb 3 Mg/0.5 Mg (3 Ml) Ud) 3 ml INH RQ6 PRN PRN Reason: Shortness of Breath Amlodipine Besylate (Norvasc) 10 mg PO DAILY [facility] Last Admin: 07/26/18 09:37 Dose: 10 mg Ciprofloxacin (Cipro) 250 mg PO BID [facility]; Protocol Last Admin: 07/26/18 17:34 Dose: 250 mg Dextrose (Dextrose 50% Inj) 0 ml IV STAT PRN; Protocol PRN Reason: Hypoglycemia Protocol Dextrose (Glutose 15) 0 gm PO ONCE PRN; Protocol PRN Reason: Hypoglycemia Protocol Docusate Sodium (Colace) 100 mg PO BID [facility] Last Admin: 07/26/18 17:33 Dose: 100 mg Glucagon (Glucagen Diagnostic Kit) 0 mg IM STAT PRN; Protocol PRN Reason: Hypoglycemia Protocol Heparin Sodium (Porcine) (Heparin) 5,000 units SC Q8 [facility] Dextrose (Dextrose 5% In Water 1000 Ml) 1,000 mls @ 0 mls/hr IV .Q0M PRN; Protocol PRN Reason: Hypoglycemia Protocol Insulin Human Regular (Novolin R) 0 unit SC ACHS [facility]; Protocol Last Admin: 07/26/18 21:57 Dose: Not Given Ketorolac Tromethamine (Toradol) 30 mg IVP Q6 PRN PRN Reason: Pain, moderate (4-7) Last Admin: 07/24/18 14:20 Dose: 30 mg Lactulose (Enulose) 20 gm PO HS [facility] Last Admin: 07/26/18 22:01 Dose: 20 gm Morphine Sulfate (Morphine) 4 mg IV Q6 PRN PRN Reason: Pain, severe (8-10) Last Admin: 07/24/18 18:14 Dose: 4 mg Oxycodone HCl (Oxycontin Extended Release Tab) 20 mg PO Q12H [facility] Stop: 07/28/18 10:52 Last Admin: 07/26/18 22:01 Dose: 20 mg Pantoprazole Sodium (Protonix Ec Tab) 40 mg PO DAILY [facility] Last Admin: 07/26/18 09:37 Dose: 40 mg - Labs Labs: 07/27/18 06:32 07/27/18 06:32 - Constitutional Appears: Non-toxic, No Acute Distress, Chronically Ill, Other (obese) - Head Exam Head Exam: ATRAUMATIC, NORMAL INSPECTION, NORMOCEPHALIC - Eye Exam Eye Exam: EOMI, Normal appearance - ENT Exam ENT Exam: Mucous Membranes Moist, Normal Exam - Neck Exam Neck Exam: Full ROM, Normal Inspection - Respiratory Exam Respiratory Exam: Clear to Ausculation Bilateral, NORMAL BREATHING PATTERN. absent: Accessory Muscle Use, Rales, Rhonchi, Wheezes, Respiratory Distress, Stridor - Cardiovascular Exam Cardiovascular Exam: REGULAR RHYTHM, +S1, +S2 - GI/Abdominal Exam GI & Abdominal Exam: Soft, Normal Bowel Sounds. absent: Distended, Firm, Guar ding, Rigid, Tenderness, Rebound - Extremities Exam Extremities Exam: Normal Capillary Refill, Normal Inspection. absent: Pedal Edema - Back Exam Back Exam: NORMAL INSPECTION, tenderness (chronic) - Neurological Exam Neurological Exam: Alert, Awake, Oriented x3 Neuro motor strength exam: Left Upper Extremity: 3, Right Upper Extremity: 2/1, Left Lower Extremity: 2/1, Right Lower Extremity: 2/1 - Psychiatric Exam Psychiatric exam: Depressed - Skin Skin Exam: Dry, Intact, Normal Color, Warm Assessment and Plan - Assessment and Plan (Free Text) Assessment: 67 year old F with PMHx of HTN, asthma, DM type II, diabetic neuropathy, and chronic back pain 2/2 bulging discs and spinal stenosis presenting with intractable back/R shoulder pain, acute onset mental status changes (since improved) and urinary incontinence s/p mechanical fall. Plan: Intractable back pain/R shoulder pain 2/2 mechanical fall -XR shoulder (07/23): no acute findings -XR hip/pelvis (07/24): no acute findings -component of pain likely chronic in nature -oxycodone 20 mg PO q12h [facility] (increased from 10 mg on 07/24) -toradol 30 mg IV q6 PRN -morphine 4 mg IV q6 PRN Hyponatremia, likely chronic -Na 124 (07/27) -IVF stopped -nephro recs (Dr. Dominguez) appreciated -evaluate for SIADH -c/w PO fluid restriction - will treat with tovalptan if no improvement noted UTI -patient continues to endorse urinary incontinence -UA (07/23): LE/RBC/WBC positive -rocephin started (07/24) but stopped as good IV access could not be established -Cipro 250mg PO BID started (07/26) x3 days Constipation -miralax 17gm PO BID [facility] -lactulose 20gm PO HS [facility] -colace 100 mg PO BID [facility] -continue to monitor AMS, r/o stroke/hemorrhage Likely resolved -CT head (07/24): no acute intracranial pathology -patient alert and oriented x 3, responds to questions appropriately -neuro checks q8 PPx, Diet, Disposition -DVT ppx: heparin 5000u q8 -GI ppx: protonix 40 mg PO daily -Diet: HHD -Fall precautions -PT on board: recommend RADHA upon discharge Case discussed with Dr. Derik Metzger DO, PGY-1 <Felix More - Last Filed: 07/29/18 16:55> Objective - Vital Signs/Intake and Output Vital Signs (last 24 hours): Temp Pulse Resp BP Pulse Ox 98.2 F 85 20 169/66 H 98 07/29/18 15:48 07/29/18 15:48 07/29/18 15:48 07/29/18 15:48 07/29/18 15:48 Intake and Output: 07/29/18 07/29/18 06:59 18:59 Intake Total 360 Balance 360 - Medications Medications: Current Medications Albuterol/Ipratropium (Duoneb 3 Mg/0.5 Mg (3 Ml) Ud) 3 ml INH RQ6 PRN PRN Reason: Shortness of Breath Amlodipine Besylate (Norvasc) 10 mg PO DAILY [facility] Last Admin: 07/29/18 10:09 Dose: 10 mg Ciprofloxacin (Cipro) 250 mg PO BID [facility]; Protocol Last Admin: 07/29/18 10:10 Dose: 250 mg Dextrose (Dextrose 50% Inj) 0 ml IV STAT PRN; Protocol PRN Reason: Hypoglycemia Protocol Dextrose (Glutose 15) 0 gm PO ONCE PRN; Protocol PRN Reason: Hypoglycemia Protocol Docusate Sodium (Colace) 100 mg PO BID [facility] Last Admin: 07/29/18 10:09 Dose: 100 mg Furosemide (Lasix) 20 mg PO DAILY [facility] Last Admin: 07/29/18 10:09 Dose: 20 mg Glucagon (Glucagen Diagnostic Kit) 0 mg IM STAT PRN; Protocol PRN Reason: Hypoglycemia Protocol Heparin Sodium (Porcine) (Heparin) 5,000 units SC Q8 [facility] Last Admin: 07/29/18 14:43 Dose: 5,000 units Dextrose (Dextrose 5% In Water 1000 Ml) 1,000 mls @ 0 mls/hr IV .Q0M PRN; Protocol PRN Reason: Hypoglycemia Protocol Insulin Glargine (Lantus) 50 unit SC HS [facility] Insulin Human Regular (Novolin R) 0 unit SC ACHS [facility]; Protocol Last Admin: 07/29/18 16:10 Dose: 6 units Lactulose (Enulose) 20 gm PO HS [facility] Last Admin: 07/28/18 22:25 Dose: 20 gm Morphine Sulfate (Morphine) 4 mg IV Q6 PRN PRN Reason: Pain, severe (8-10) Last Admin: 07/24/18 18:14 Dose: 4 mg Pantoprazole Sodium (Protonix Ec Tab) 40 mg PO DAILY [facility] Last Admin: 07/29/18 10:09 Dose: 40 mg Polyethylene Glycol (Miralax) 17 gm PO BID [facility] Last Admin: 07/29/18 10:11 Dose: 17 gm Sodium Chloride (Sodium Chloride Tab) 1 gm PO DAILY [facility] Last Admin: 07/29/18 11:00 Dose: 1 gm - Labs Labs: 07/28/18 06:48 07/29/18 11:25 PT 13.8 SECONDS (9.7-12.2) H 07/28/18 11:29 INR 1.3 07/28/18 11:29 Attending/Attestation - Attestation I have personally seen and examined this patient.: Yes I have fully participated in the care of the patient.: Yes I have reviewed all pertinent clinical information, including history, physical exam and plan: Yes Notes (Text): seen and examined by me Had long discussion with her daughter. Patient has extensive work up for her back pain in the past and evaluated by physician (Orthopedic/spine, primary and pain Mx)Decided for nonsurgical management. Discussed about possible depression. Markhter wants pastoral care not psichiatry evaluation we will follow nephrology for hyponatremia and Assessment and the plan discussed and I agree with the documentation
[2018-07-27] MEDS: (Novolin R) Insulin Human Regular 100 units/ml vial SC SCH ×4 (08:23→21:41)
[2018-07-27] MEDS: Pantoprazole 40 mg EC Tab PO SCH (09:34)
[2018-07-27] MEDS: oxyCODONE 10 mg ER Tab (oxyCONTIN) PO SCH ×2 (09:55→23:47)
--- NOTE | 2018-07-27 12:34 | CP.PCM.PN ---
Subjective - Date & Time of Evaluation Date of Evaluation: 07/27/18 Time of Evaluation: 12:31 - Subjective Subjective: c/o constipation given lasix; UO not recorded Na still low- 124 Uosm elevated- c/w SIADH Objective - Vital Signs/Intake and Output Vital Signs (last 24 hours): Temp Pulse Resp BP Pulse Ox 98 F 70 20 132/67 97 07/27/18 08:07 07/27/18 08:07 07/27/18 08:07 07/27/18 08:07 07/27/18 08:07 Intake and Output: 07/27/18 07/27/18 06:59 18:59 Intake Total 250 Balance 250 - Medications Medications: Current Medications Albuterol/Ipratropium (Duoneb 3 Mg/0.5 Mg (3 Ml) Ud) 3 ml INH RQ6 PRN PRN Reason: Shortness of Breath Amlodipine Besylate (Norvasc) 10 mg PO DAILY [facility] Last Admin: 07/27/18 09:34 Dose: 10 mg Ciprofloxacin (Cipro) 250 mg PO BID [facility]; Protocol Last Admin: 07/27/18 09:34 Dose: 250 mg Dextrose (Dextrose 50% Inj) 0 ml IV STAT PRN; Protocol PRN Reason: Hypoglycemia Protocol Dextrose (Glutose 15) 0 gm PO ONCE PRN; Protocol PRN Reason: Hypoglycemia Protocol Docusate Sodium (Colace) 100 mg PO BID [facility] Last Admin: 07/27/18 09:34 Dose: 100 mg Glucagon (Glucagen Diagnostic Kit) 0 mg IM STAT PRN; Protocol PRN Reason: Hypoglycemia Protocol Heparin Sodium (Porcine) (Heparin) 5,000 units SC Q8 [facility] Dextrose (Dextrose 5% In Water 1000 Ml) 1,000 mls @ 0 mls/hr IV .Q0M PRN; Protocol PRN Reason: Hypoglycemia Protocol Insulin Human Regular (Novolin R) 0 unit SC ACHS [facility]; Protocol Last Admin: 07/27/18 08:23 Dose: 3 units Ketorolac Tromethamine (Toradol) 30 mg IVP Q6 PRN PRN Reason: Pain, moderate (4-7) Last Admin: 07/24/18 14:20 Dose: 30 mg Lactulose (Enulose) 20 gm PO HS [facility] Last Admin: 07/26/18 22:01 Dose: 20 gm Morphine Sulfate (Morphine) 4 mg IV Q6 PRN PRN Reason: Pain, severe (8-10) Last Admin: 07/24/18 18:14 Dose: 4 mg Oxycodone HCl (Oxycontin Extended Release Tab) 20 mg PO Q12H [facility] Stop: 07/28/18 10:52 Last Admin: 07/27/18 09:55 Dose: 20 mg Pantoprazole Sodium (Protonix Ec Tab) 40 mg PO DAILY [facility] Last Admin: 07/27/18 09:34 Dose: 40 mg Polyethylene Glycol (Miralax) 17 gm PO BID [facility] - Labs Labs: 07/27/18 06:32 07/27/18 06:32 - Constitutional Appears: No Acute Distress, Chronically Ill - Head Exam Head Exam: ATRAUMATIC, NORMAL INSPECTION - Eye Exam Eye Exam: EOMI, Normal appearance - Neck Exam Neck Exam: Normal Inspection. absent: Tenderness - Respiratory Exam Respiratory Exam: Clear to Ausculation Bilateral, NORMAL BREATHING PATTERN - Cardiovascular Exam Cardiovascular Exam: REGULAR RHYTHM, +S1 - GI/Abdominal Exam GI & Abdominal Exam: Soft. absent: Tenderness - Extremities Exam Extremities Exam: Normal Inspection. absent: Tenderness - Neurological Exam Neurological Exam: Awake, CN II-XII Intact - Skin Skin Exam: Dry, Warm Assessment and Plan (1) Chronic hyponatremia Status: Acute (2) Asthma exacerbation Status: Acute (3) HTN (hypertension) Status: Chronic (4) WILL (obstructive sleep apnea) Status: Chronic (5) T2DM (type 2 diabetes mellitus) Status: Chronic - Assessment and Plan (Free Text) Plan: evaluate for SIADH po fluid restriction if no improvement treat with tovalptan
[2018-07-27] MEDS ORDERED: Sod Polystyrene Sulf 15 gm/60 ml Susp PO ONE (13:00)
[2018-07-27 13:08] LABS: URIC ACID 4.9 mg/dL (2.2-7.5)
[2018-07-27] MEDS: POLYETHYLENE GLYCOL 3350 17 GM/Dose PACKET PO SCH (18:07)
[2018-07-28 07:23] LABS: ALB/GLOB RATIO 0.9 (1.0-2.1); ALBUMIN 3.7 g/dL (3.5-5.0); ALT/SGPT 159 U/L (9-52); AST/SGOT 116 U/L (14-36); BLOOD UREA NITROGEN 21 mg/dL (7-17); CALCIUM 8.6 mg/dl (8.6-10.4); GFR NON-AFRICAN AMERICAN > 60
--- NOTE | 2018-07-28 07:31 | CP.PCM.PN ---
<Akash Metzger - Last Filed: 07/28/18 14:05> Subjective - Date & Time of Evaluation Date of Evaluation: 07/28/18 Time of Evaluation: 07:31 - Subjective Subjective: PGY-1 Medicine Progress Note for Dr. More Patient seen and examined at bedside this AM, in much better spirits. No acute overnight events reported. She continues to endorse shoulder/back pain, but improved this morning. Continues to have constipation. No other acute somatic complaints at this time. Denies fevers/chills, headaches, dizziness, chest pain, palpitations, shortness of breath, cough, abdominal pain, n/v/d, dysuria, or changes in stool. Objective - Vital Signs/Intake and Output Vital Signs (last 24 hours): Temp Pulse Resp BP Pulse Ox 97.8 F 74 20 146/72 96 07/28/18 00:00 07/28/18 00:00 07/28/18 00:00 07/28/18 00:00 07/28/18 00:00 Intake and Output: 07/28/18 07/28/18 06:59 18:59 Intake Total 300 Balance 300 - Medications Medications: Current Medications Albuterol/Ipratropium (Duoneb 3 Mg/0.5 Mg (3 Ml) Ud) 3 ml INH RQ6 PRN PRN Reason: Shortness of Breath Amlodipine Besylate (Norvasc) 10 mg PO DAILY [facility] Last Admin: 07/27/18 09:34 Dose: 10 mg Ciprofloxacin (Cipro) 250 mg PO BID [facility]; Protocol Last Admin: 07/27/18 18:06 Dose: 250 mg Dextrose (Dextrose 50% Inj) 0 ml IV STAT PRN; Protocol PRN Reason: Hypoglycemia Protocol Dextrose (Glutose 15) 0 gm PO ONCE PRN; Protocol PRN Reason: Hypoglycemia Protocol Docusate Sodium (Colace) 100 mg PO BID [facility] Last Admin: 07/27/18 18:06 Dose: 100 mg Glucagon (Glucagen Diagnostic Kit) 0 mg IM STAT PRN; Protocol PRN Reason: Hypoglycemia Protocol Heparin Sodium (Porcine) (Heparin) 5,000 units SC Q8 [facility] Dextrose (Dextrose 5% In Water 1000 Ml) 1,000 mls @ 0 mls/hr IV .Q0M PRN; Protocol PRN Reason: Hypoglycemia Protocol Insulin Human Regular (Novolin R) 0 unit SC ACHS [facility]; Protocol Last Admin: 07/27/18 21:41 Dose: Not Given Ketorolac Tromethamine (Toradol) 30 mg IVP Q6 PRN PRN Reason: Pain, moderate (4-7) Last Admin: 07/24/18 14:20 Dose: 30 mg Lactulose (Enulose) 20 gm PO HS [facility] Last Admin: 07/27/18 22:02 Dose: 20 gm Morphine Sulfate (Morphine) 4 mg IV Q6 PRN PRN Reason: Pain, severe (8-10) Last Admin: 07/24/18 18:14 Dose: 4 mg Oxycodone HCl (Oxycontin Extended Release Tab) 20 mg PO Q12H [facility] Stop: 07/28/18 10:52 Last Admin: 07/27/18 23:47 Dose: 20 mg Pantoprazole Sodium (Protonix Ec Tab) 40 mg PO DAILY [facility] Last Admin: 07/27/18 09:34 Dose: 40 mg Polyethylene Glycol (Miralax) 17 gm PO BID [facility] Last Admin: 07/27/18 18:07 Dose: 17 gm - Labs Labs: 07/27/18 06:32 07/28/18 06:48 - Constitutional Appears: Non-toxic, No Acute Distress, Chronically Ill, Other (obese) - Head Exam Head Exam: ATRAUMATIC, NORMAL INSPECTION, NORMOCEPHALIC - Eye Exam Eye Exam: EOMI, Normal appearance, PERRL - ENT Exam ENT Exam: Mucous Membranes Moist, Normal Exam - Neck Exam Neck Exam: Full ROM, Normal Inspection - Respiratory Exam Respiratory Exam: Clear to Ausculation Bilateral, NORMAL BREATHING PATTERN. absent: Accessory Muscle Use, Rales, Rhonchi, Wheezes, Respiratory Distress, Stridor - Cardiovascular Exam Cardiovascular Exam: +S1, +S2 - GI/Abdominal Exam GI & Abdominal Exam: Soft, Normal Bowel Sounds. absent: Distended, Firm, Guarding, Rigid, Tenderness - Extremities Exam Extremities Exam: Normal Capillary Refill, Normal Inspection - Back Exam Back Exam: NORMAL INSPECTION, tenderness (chronic) - Neurological Exam Neurological Exam: Alert, Awake, Oriented x3 Neuro motor strength exam: Left Upper Extremity: 3, Right Upper Extremity: 2/1, Left Lower Extremity: 2/1, Right Lower Extremity: 2/1 - Psychiatric Exam Psychiatric exam: Depressed, Normal Affect - Skin Skin Exam: Dry, Intact, Normal Color, Warm Assessment and Plan - Assessment and Plan (Free Text) Assessment: 67 year old F with PMHx of HTN, asthma, DM type II, diabetic neuropathy, and chronic back pain 2/2 bulging discs and spinal stenosis presenting with intractable back/R shoulder pain, acute onset mental status changes (since improved) and urinary incontinence s/p mechanical fall. Plan: Intractable back pain/R shoulder pain 2/2 mechanical fall -XR shoulder (07/23): no acute findings -XR hip/pelvis (07/24): no acute findings -component of pain likely chronic in nature -oxycodone 20 mg PO q12h [facility] (increased from 10 mg on 07/24) -toradol 30 mg IV q6 PRN--held per Nephro recs (07/28) -morphine 4 mg IV q6 PRN Hyponatremia, likely chronic -Na 126 (07/28) -IVF stopped -Nephro recs (Dr. Dalton) appreciated -likely SIADH -c/w PO fluid restriction -salt tablets and lasix -avoid NSAIDs, pt is on toradol -f/u repeat urine osm/Na Transaminitis, unknown etiology -AST/ALT elevated on admission: 245/254-->116/159 (07/28) -continue to trend -ALP 142 (07/28) -hepatitis panel negative -ammonia level within normal limits -abdominal ultrasound (07/28): hepatomegaly with diffuse increased echogenicity suggestive of hepatic steatosis vs. other hepatic diffuse parenchymal pathology. No dilated ducts or focal liver masses. No extrahepatic suspect dilated ducts or choledocholithiasis appreciated. No gross ascites seen. -GI (Dr. Carlson) consulted UTI -patient continues to endorse urinary incontinence -UA (07/23): LE/RBC/WBC positive -rocephin started (07/24) but stopped as good IV access could not be established -Cipro 250mg PO BID started (07/26) x3 days Constipation -miralax 17gm PO BID [facility] -lactulose 20gm PO HS [facility] -colace 100 mg PO BID [facility] -continue to monitor DM Type II -Patient's home metformin held -HbA1C 7.2 (07/28) -restart home Lantus 80 units SC HS -ISS high dose -accuchecks ACHS -hypoglycemic protocol AMS, r/o stroke/hemorrhage Likely resolved -CT head (07/24): no acute intracranial pathology -patient alert and oriented x 3, responds to questions appropriately -neuro checks q8 PPx, Diet, Disposition -DVT ppx: heparin 5000 units q8 on hold -GI ppx: protonix 40 mg PO daily -Diet: HHD -Fall precautions -PT on board: recommend RADHA upon discharge Case discussed with Dr. Derik Metzger DO, PGY-1 <Felix More - Last Filed: 07/28/18 17:14> Objective - Vital Signs/Intake and Output Vital Signs (last 24 hours): Temp Pulse Resp BP Pulse Ox 97.9 F 70 20 160/75 H 98 07/28/18 07:00 07/28/18 07:00 07/28/18 07:00 07/28/18 13:20 07/28/18 07:00 Intake and Output: 07/28/18 07/28/18 06:59 18:59 Intake Total 300 300 Balance 300 300 - Medications Medications: Current Medications Albuterol/Ipratropium (Duoneb 3 Mg/0.5 Mg (3 Ml) Ud) 3 ml INH RQ6 PRN PRN Reason: Shortness of Breath Amlodipine Besylate (Norvasc) 10 mg PO DAILY [facility] Last Admin: 07/28/18 10:05 Dose: 10 mg Ciprofloxacin (Cipro) 250 mg PO BID [facility]; Protocol Last Admin: 07/28/18 10:06 Dose: 250 mg Dextrose (Dextrose 50% Inj) 0 ml IV STAT PRN; Protocol PRN Reason: Hypoglycemia Protocol Dextrose (Glutose 15) 0 gm PO ONCE PRN; Protocol PRN Reason: Hypoglycemia Protocol Docusate Sodium (Colace) 100 mg PO BID [facility] Last Admin: 07/28/18 10:06 Dose: 100 mg Furosemide (Lasix) 20 mg PO DAILY [facility] Last Admin: 07/28/18 13:20 Dose: 20 mg Glucagon (Glucagen Diagnostic Kit) 0 mg IM STAT PRN; Protocol PRN Reason: Hypoglycemia Protocol Heparin Sodium (Porcine) (Heparin) 5,000 units SC Q8 [facility] Dextrose (Dextrose 5% In Water 1000 Ml) 1,000 mls @ 0 mls/hr IV .Q0M PRN; Protocol PRN Reason: Hypoglycemia Protocol Insulin Glargine (Lantus) 40 unit SC HS [facility] Insulin Human Regular (Novolin R) 0 unit SC ACHS [facility]; Protocol Last Admin: 07/28/18 13:04 Dose: 4 units Ketorolac Tromethamine (Toradol) 30 mg IVP Q6 PRN PRN Reason: Pain, moderate (4-7) Last Admin: 07/24/18 14:20 Dose: 30 mg Lactulose (Enulose) 20 gm PO HS [facility] Last Admin: 07/27/18 22:02 Dose: 20 gm Morphine Sulfate (Morphine) 4 mg IV Q6 PRN PRN Reason: Pain, severe (8-10) Last Admin: 07/24/18 18:14 Dose: 4 mg Pantoprazole Sodium (Protonix Ec Tab) 40 mg PO DAILY [facility] Last Admin: 07/28/18 10:06 Dose: 40 mg Polyethylene Glycol (Miralax) 17 gm PO BID [facility] Last Admin: 07/28/18 10:06 Dose: 17 gm Sodium Chloride (Sodium Chloride Tab) 1 gm PO DAILY [facility] - Labs Labs: 07/28/18 06:48 07/28/18 06:48 PT 13.8 SECONDS (9.7-12.2) H 07/28/18 11:29 INR 1.3 07/28/18 11:29 Attending/Attestation - Attestation I have personally seen and examined this patient.: Yes I have fully participated in the care of the patient.: Yes I have reviewed all pertinent clinical information, including history, physical exam and plan: Yes Notes (Text): SEEN AND EXAMINED ,LESS BACK PAIN,DISCUSSED ABOUT HIGH LFT. HEPATITIS PANEL NEGATIVE ,US OF LIVER hepatic steatosis vs. other hepatic diffuse parenchymal PATIENT TAKES 80UNITS LANTUS WITH METFORMIN.WE WILL GIVE 40UNITS AND SEE HOW SHE IS DOING WE WILL GET GI CONSULT TO EVALUATE FOR TRANSAMINITIS Spoke to daughter yesterday. she has chronic back pain and follows pain management,has multiple scans and follow up with ortho in the past Agrees to d/c to rehab c\monitor sugar
[2018-07-28 08:14] LABS: BASO # 0.1 K/uL (0.0-0.2); BASO % 0.8 % (0.0-2.0); EOS # 0.3 K/uL (0.0-0.7); EOS % 2.6 % (0.0-4.0); HEMOGLOBIN 11.2 g/dL (11.0-16.0); LYMPH # 2.4 K/uL (1.0-4.3); LYMPH % 20.4 % (20.0-40.0); MEAN CELL VOLUME 88.5 fL (81.0-99.0); MEAN CORPUSCULAR HEMOGLOBIN 29.1 pg (27.0-31.0); MEAN CORPUSCULAR HGB CONC 32.8 g/dL (33.0-37.0); MEAN PLATELET VOLUME 8.7 fL (7.2-11.7); MONO # 1.4 K/uL (0.0-0.8); MONO % 12.3 % (0.0-10.0); NEUT # 7.4 K/uL (1.8-7.0); NEUT % 63.9 % (50.0-75.0); RBC 3.85 Mil/uL (3.80-5.20); RED CELL DISTRIBUTION WIDTH 13.2 % (11.5-14.5); WHITE BLOOD COUNT 11.6 K/uL (4.8-10.8)
[2018-07-28] MEDS: oxyCODONE 10 mg ER Tab (oxyCONTIN) PO SCH (10:06)
[2018-07-28] MEDS: Pantoprazole 40 mg EC Tab PO SCH (10:06)
[2018-07-28] MEDS: POLYETHYLENE GLYCOL 3350 17 GM/Dose PACKET PO SCH ×2 (10:06→18:33)
[2018-07-28] MEDS: (Novolin R) Insulin Human Regular 100 units/ml vial SC SCH ×4 (10:10→22:20)
--- NOTE | 2018-07-28 10:52 | CP.PCM.PN ---
Subjective - Date & Time of Evaluation Date of Evaluation: 07/28/18 Time of Evaluation: 10:51 - Subjective Subjective: seen and examined no events na 126 pt is awake, denies any complaints Objective - Vital Signs/Intake and Output Vital Signs (last 24 hours): Temp Pulse Resp BP Pulse Ox 97.9 F 70 20 161/75 H 98 07/28/18 07:00 07/28/18 07:00 07/28/18 07:00 07/28/18 07:00 07/28/18 07:00 Intake and Output: 07/28/18 07/28/18 06:59 18:59 Intake Total 300 Balance 300 - Medications Medications: Current Medications Albuterol/Ipratropium (Duoneb 3 Mg/0.5 Mg (3 Ml) Ud) 3 ml INH RQ6 PRN PRN Reason: Shortness of Breath Amlodipine Besylate (Norvasc) 10 mg PO DAILY [facility] Last Admin: 07/28/18 10:05 Dose: 10 mg Ciprofloxacin (Cipro) 250 mg PO BID [facility]; Protocol Last Admin: 07/28/18 10:06 Dose: 250 mg Dextrose (Dextrose 50% Inj) 0 ml IV STAT PRN; Protocol PRN Reason: Hypoglycemia Protocol Dextrose (Glutose 15) 0 gm PO ONCE PRN; Protocol PRN Reason: Hypoglycemia Protocol Docusate Sodium (Colace) 100 mg PO BID [facility] Last Admin: 07/28/18 10:06 Dose: 100 mg Glucagon (Glucagen Diagnostic Kit) 0 mg IM STAT PRN; Protocol PRN Reason: Hypoglycemia Protocol Heparin Sodium (Porcine) (Heparin) 5,000 units SC Q8 [facility] Dextrose (Dextrose 5% In Water 1000 Ml) 1,000 mls @ 0 mls/hr IV .Q0M PRN; Protocol PRN Reason: Hypoglycemia Protocol Insulin Human Regular (Novolin R) 0 unit SC ACHS [facility]; Protocol Ketorolac Tromethamine (Toradol) 30 mg IVP Q6 PRN PRN Reason: Pain, moderate (4-7) Last Admin: 07/24/18 14:20 Dose: 30 mg Lactulose (Enulose) 20 gm PO HS [facility] Last Admin: 07/27/18 22:02 Dose: 20 gm Morphine Sulfate (Morphine) 4 mg IV Q6 PRN PRN Reason: Pain, severe (8-10) Last Admin: 07/24/18 18:14 Dose: 4 mg Oxycodone HCl (Oxycontin Extended Release Tab) 20 mg PO Q12H [facility] Stop: 07/28/18 10:52 Last Admin: 07/28/18 10:06 Dose: Not Given Pantoprazole Sodium (Protonix Ec Tab) 40 mg PO DAILY [facility] Last Admin: 07/28/18 10:06 Dose: 40 mg Polyethylene Glycol (Miralax) 17 gm PO BID [facility] Last Admin: 07/28/18 10:06 Dose: 17 gm Sodium Chloride (Sodium Chloride Tab) 1 gm PO DAILY [facility] - Labs Labs: 07/28/18 06:48 07/28/18 06:48 - Constitutional Appears: No Acute Distress, Chronically Ill (obese) - Head Exam Head Exam: NORMAL INSPECTION, NORMOCEPHALIC - Eye Exam Eye Exam: Normal appearance, PERRL - ENT Exam ENT Exam: Mucous Membranes Dry, Normal Exam - Neck Exam Neck Exam: Normal Inspection - Respiratory Exam Respiratory Exam: Clear to Ausculation Bilateral, NORMAL BREATHING PATTERN - Cardiovascular Exam Cardiovascular Exam: REGULAR RHYTHM, RRR - GI/Abdominal Exam GI & Abdominal Exam: Distended, Soft - Extremities Exam Extremities Exam: Normal Inspection - Neurological Exam Neurological Exam: Alert, Awake - Skin Skin Exam: Dry, Intact Assessment and Plan (1) Chronic hyponatremia Status: Acute (2) Intractable back pain Status: Acute (3) HTN (hypertension) Status: Chronic (4) T2DM (type 2 diabetes mellitus) Status: Chronic - Assessment and Plan (Free Text) Assessment: likely siadh advise fluid restriction salt tabs and lasix ordered recommend avoid nsaids - pt on toradol urine osm / na reordered elevated LFTs ?
[2018-07-28 11:43] LABS: INR 1.3; PROTHROMBIN TIME 13.8 SECONDS (9.7-12.2)
[2018-07-28 11:46] LABS: OSMOLALITY,URINE 228 mosm/kg (300-1000)
[2018-07-28 12:23] LABS: HEPATITIS B SURFACE AG Negative (NEGATIVE)
[2018-07-28 12:29] LABS: HEPATITIS A IGM NEGATIVE (NEGATIVE); HEPATITIS B CORE AB NEGATIVE (NEGATIVE)
[2018-07-28 12:40] LABS: HEPATITIS C ANTIBODY NEGATIVE (NEGATIVE)
--- NOTE | 2018-07-28 12:50 | US ---
Date of service: 07/28/2018 HISTORY: Elevated LFT,r/o liver path and ascites COMPARISON: None. TECHNIQUE: Sonographic evaluation of the abdomen. FINDINGS: LIVER: Measures 18.7 cm. Diffuse increased echogenicity of the liver parenchyma. No mass. No intrahepatic bile duct dilatation. GALLBLADDER: Nonvisualized consistent with prior cholecystectomy. COMMON BILE DUCT: Measures 6.9 mm. No stones. No dilatation. PANCREAS: Unremarkable as visualized. Obscuring bowel gas limits optimal evaluation of the body and tail. RIGHT KIDNEY: Measures 10.5 x 4.3 x 5.3cm. Normal echogenicity. No calculus, mass, or hydronephrosis. LEFT KIDNEY: Measures 10.0 x 4.9 x 4.8cm. Normal echogenicity. No calculus, mass, or hydronephrosis. SPLEEN: Normal in size and contour. No mass. AORTA: No aneurysmal dilatation. IVC: Unremarkable. OTHER FINDINGS: No ascites grossly appreciated. IMPRESSION: . Hepatomegaly with diffuse increased echogenicity-hepatic steatosis versus other hepatic diffuse parenchymal pathology compatible with this. No dilated ducts for focal liver masses. Status post cholecystectomy no extrahepatic suspect dilated ducts or choledocholithiasis appreciated. No gross ascites seen.
[2018-07-28] MEDS ORDERED: (Lantus) Insulin Glargine, Recombinant SC SCH ×2 (22:00)
[2018-07-29] MEDS: (Novolin R) Insulin Human Regular 100 units/ml vial SC SCH ×3 (08:20→16:10)
--- NOTE | 2018-07-29 09:45 | CP.PCM.PN ---
Subjective - Date & Time of Evaluation Date of Evaluation: 07/29/18 Time of Evaluation: 09:44 - Subjective Subjective: PGY-1 Medicine Progress Note for Dr. More Objective - Vital Signs/Intake and Output Vital Signs (last 24 hours): Temp Pulse Resp BP Pulse Ox 97.9 F 69 20 138/74 96 07/29/18 08:16 07/29/18 08:16 07/29/18 08:16 07/29/18 08:16 07/29/18 08:16 - Medications Medications: Current Medications Albuterol/Ipratropium (Duoneb 3 Mg/0.5 Mg (3 Ml) Ud) 3 ml INH RQ6 PRN PRN Reason: Shortness of Breath Amlodipine Besylate (Norvasc) 10 mg PO DAILY [facility] Last Admin: 07/28/18 10:05 Dose: 10 mg Ciprofloxacin (Cipro) 250 mg PO BID [facility]; Protocol Last Admin: 07/28/18 18:46 Dose: 250 mg Dextrose (Dextrose 50% Inj) 0 ml IV STAT PRN; Protocol PRN Reason: Hypoglycemia Protocol Dextrose (Glutose 15) 0 gm PO ONCE PRN; Protocol PRN Reason: Hypoglycemia Protocol Docusate Sodium (Colace) 100 mg PO BID [facility] Last Admin: 07/28/18 18:33 Dose: 100 mg Furosemide (Lasix) 20 mg PO DAILY [facility] Last Admin: 07/28/18 13:20 Dose: 20 mg Glucagon (Glucagen Diagnostic Kit) 0 mg IM STAT PRN; Protocol PRN Reason: Hypoglycemia Protocol Heparin Sodium (Porcine) (Heparin) 5,000 units SC Q8 [facility] Last Admin: 07/29/18 05:47 Dose: 5,000 units Dextrose (Dextrose 5% In Water 1000 Ml) 1,000 mls @ 0 mls/hr IV .Q0M PRN; P rotocol PRN Reason: Hypoglycemia Protocol Insulin Glargine (Lantus) 40 unit SC HS [facility] Last Admin: 07/28/18 22:25 Dose: 40 unit Insulin Human Regular (Novolin R) 0 unit SC ACHS [facility]; Protocol Last Admin: 07/29/18 08:20 Dose: 2 units Lactulose (Enulose) 20 gm PO HS [facility] Last Admin: 07/28/18 22:25 Dose: 20 gm Morphine Sulfate (Morphine) 4 mg IV Q6 PRN PRN Reason: Pain, severe (8-10) Last Admin: 07/24/18 18:14 Dose: 4 mg Pantoprazole Sodium (Protonix Ec Tab) 40 mg PO DAILY [facility] Last Admin: 07/28/18 10:06 Dose: 40 mg Polyethylene Glycol (Miralax) 17 gm PO BID [facility] Last Admin: 07/28/18 18:33 Dose: 17 gm Sodium Chloride (Sodium Chloride Tab) 1 gm PO DAILY [facility] - Labs Labs: 07/28/18 06:48 07/28/18 06:48 PT 13.8 SECONDS (9.7-12.2) H 07/28/18 11:29 INR 1.3 07/28/18 11:29
[2018-07-29] MEDS: Pantoprazole 40 mg EC Tab PO SCH (10:09)
[2018-07-29] MEDS: POLYETHYLENE GLYCOL 3350 17 GM/Dose PACKET PO SCH (10:11)
[2018-07-29 12:00] LABS: ALB/GLOB RATIO 0.9 (1.0-2.1); ALBUMIN 3.8 g/dL (3.5-5.0); ALT/SGPT 143 U/L (9-52); AST/SGOT 138 U/L (14-36); BLOOD UREA NITROGEN 16 mg/dL (7-17); CALCIUM 8.7 mg/dl (8.6-10.4); GFR NON-AFRICAN AMERICAN > 60
[2018-07-29] MEDS ORDERED: (Lantus) Insulin Glargine, Recombinant SC SCH (12:19)
--- NOTE | 2018-07-29 12:21 | CP.PCM.CON ---
History of Present Illness - History of Present Illness History of Present Illness: GI Service Consult CC: elevated liver enzymes HPI: 67 year old woman with severe obesity and arthritis was admitted with intractable back pain. Pt was found to have consistently elevated liver enzymes since admission. Sonogram shows fatty liver. hepatitis profile normal. Outpatient medications reviewed and contain several hepatotoxic medications. No etoh or hepatitis risk factors noted. Review of Systems - Review of Systems Systems not reviewed;Unavailable: Altered Mental Status Past Patient History - Infectious Disease Hx of Infectious Diseases: None - Tetanus Immunizations Tetanus Immunization: Unknown - Past Medical History & Family History Past Medical History?: Yes - Past Social History Smoking Status: Never Smoked - CARDIAC Hx Hypercholesterolemia: Yes Hx Hypertension: Yes - PULMONARY Hx Asthma: Yes Hx Sleep Apnea: Yes - NEUROLOGICAL Hx Neurological Disorder: No - HEENT Hx HEENT Problems: No - RENAL Hx Chronic Kidney Disease: No - ENDOCRINE/METABOLIC Hx Diabetes Mellitus Type 2: Yes - HEMATOLOGICAL/ONCOLOGICAL Hx Blood Disorders: No - INTEGUMENTARY Hx Dermatological Problems: No - MUSCULOSKELETAL/RHEUMATOLOGICAL Hx Arthritis: Yes - GASTROINTESTINAL Hx Constipation: Yes - GENITOURINARY/GYNECOLOGICAL Hx Incontinence: Yes - PSYCHIATRIC Hx Substance Use: No - SURGICAL HISTORY Hx Section: Yes Hx Cholecystectomy: Yes - ANESTHESIA Hx Anesthesia: Yes Hx Anesthesia Reactions: No Meds Allergies/Adverse Reactions: Allergies Allergy/AdvReac Type Severity Reaction Status Date / Time codeine Allergy ITCHING Verified 07/23/18 13:17 mushroom Allergy ITCHING Verified 07/25/18 18:27 - Medications Medications: Current Medications Albuterol/Ipratropium (Duoneb 3 Mg/0.5 Mg (3 Ml) Ud) 3 ml INH RQ6 PRN PRN Reason: Shortness of Breath Amlodipine Besylate (Norvasc) 10 mg PO DAILY [facility] Last Admin: 07/29/18 10:09 Dose: 10 mg Ciprofloxacin (Cipro) 250 mg PO BID [facility]; Protocol Last Admin: 07/29/18 10:10 Dose: 250 mg Dextrose (Dextrose 50% Inj) 0 ml IV STAT PRN; Protocol PRN Reason: Hypoglycemia Protocol Dextrose (Glutose 15) 0 gm PO ONCE PRN; Protocol PRN Reason: Hypoglycemia Protocol Docusate Sodium (Colace) 100 mg PO BID [facility] Last Admin: 07/29/18 10:09 Dose: 100 mg Furosemide (Lasix) 20 mg PO DAILY [facility] Last Admin: 07/29/18 10:09 Dose: 20 mg Glucagon (Glucagen Diagnostic Kit) 0 mg IM STAT PRN; Protocol PRN Reason: Hypoglycemia Protocol Heparin Sodium (Porcine) (Heparin) 5,000 units SC Q8 [facility] Last Admin: 07/29/18 05:47 Dose: 5,000 units Dextrose (Dextrose 5% In Water 1000 Ml) 1,000 mls @ 0 mls/hr IV .Q0M PRN; Protocol PRN Reason: Hypoglycemia Protocol Insulin Glargine (Lantus) 40 unit SC HS [facility] Last Admin: 07/28/18 22:25 Dose: 40 unit Insulin Human Regular (Novolin R) 0 unit SC ACHS [facility]; Protocol Last Admin: 07/29/18 08:20 Dose: 2 units Lactulose (Enulose) 20 gm PO HS [facility] Last Admin: 07/28/18 22:25 Dose: 20 gm Morphine Sulfate (Morphine) 4 mg IV Q6 PRN PRN Reason: Pain, severe (8-10) Last Admin: 07/24/18 18:14 Dose: 4 mg Pantoprazole Sodium (Protonix Ec Tab) 40 mg PO DAILY [facility] Last Admin: 07/29/18 10:09 Dose: 40 mg Polyethylene Glycol (Miralax) 17 gm PO BID [facility] Last Admin: 07/29/18 10:11 Dose: 17 gm Sodium Chloride (Sodium Chloride Tab) 1 gm PO DAILY [facility] Last Admin: 07/29/18 11:00 Dose: 1 gm Physical Exam - Constitutional Appears: Chronically Ill (Can not stand without assistance. Obese) - Head Exam Head Exam: NORMOCEPHALIC - Eye Exam Eye Exam: absent: Scleral icterus - Respiratory Exam Respiratory Exam: NORMAL BREATHING PATTERN - Cardiovascular Exam Cardiovascular Exam: REGULAR RHYTHM - GI/Abdominal Exam GI & Abdominal Exam: Soft. absent: Mass, Tenderness Results - Vital Signs Recent Vital Signs: Last Vital Signs Temp 97.9 F 07/29/18 08:16 Pulse 69 07/29/18 08:16 Resp 20 07/29/18 08:16 BP 138/74 07/29/18 10:09 Pulse Ox 96 07/29/18 08:16 - Labs Result Diagrams: 07/28/18 06:48 07/29/18 11:25 Labs: Laboratory Results - last 24 hr 07/28/18 07/28/18 07/28/18 11:29 16:21 21:36 Sodium Potassium Chloride Carbon Dioxide Anion Gap BUN Creatinine Est GFR ( Amer) Est GFR (Non-Af Amer) POC Glucose (mg/dL) 255 H 217 H Random Glucose Calcium Total Bilirubin AST ALT Alkaline Phosphatase Total Protein Albumin Globulin Albumin/Globulin Ratio Hepatitis A IgM Ab Negative Hep Bs Antigen Negative Hep B Core IgM Ab Negative Hepatitis C Antibody Negative 07/29/18 07/29/18 07/29/18 07:35 11:10 11:25 Sodium 126 L Potassium 4.8 Chloride 92 L Carbon Dioxide 23 Anion Gap 16 BUN 16 Creatinine 0.7 Est GFR ( Amer) > 60 Est GFR (Non-Af Amer) > 60 POC Glucose (mg/dL) 195 H 244 H Random Glucose 235 H Calcium 8.7 Total Bilirubin 0.7 AST 138 H ALT 143 H Alkaline Phosphatase 132 H Total Protein 8.2 Albumin 3.8 Globulin 4.3 H Albumin/Globulin Ratio 0.9 L Hepatitis A IgM Ab Hep Bs Antigen Hep B Core IgM Ab Hepatitis C Antibody Assessment & Plan (1) Elevated transaminase level Assessment and Plan: likely drug induced. Tinazidine is most likely. Now stopped. Enzymes slowly improving. Hepatic steatosis possible Rec: keep off hepatotoxic drugs and monitor liver chemistries periodically (not necessary to check on a daily basis) Status: Acute (2) Chronic hyponatremia Assessment and Plan: Followed by renal SIADH Status: Acute (3) Intractable back pain Assessment and Plan: Management per primary care team Status: Acute (4) Obesity Status: Acute (5) HTN (hypertension) Status: Chronic Priority: Medium (6) WILL (obstructive sleep apnea) Status: Chronic Priority: Medium (7) T2DM (type 2 diabetes mellitus) Status: Chronic Priority: Medium - Date & Time Date: 07/29/18 Time: 12:26
--- NOTE | 2018-07-29 13:56 | CP.PCM.PN ---
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 and several drinks at bedside no chest pain no sob no palpitations no fever no chills no diarrhea no nausea no rash no arthralgias Objective - Vital Signs/Intake and Output Vital Signs (last 24 hours): Temp Pulse Resp BP Pulse Ox 97.9 F 69 20 138/74 96 07/29/18 08:16 07/29/18 08:16 07/29/18 08:16 07/29/18 10:09 07/29/18 08:16 - Medications Medications: Current Medications Albuterol/Ipratropium (Duoneb 3 Mg/0.5 Mg (3 Ml) Ud) 3 ml INH RQ6 PRN PRN Reason: Shortness of Breath Amlodipine Besylate (Norvasc) 10 mg PO DAILY [facility] Last Admin: 07/29/18 10:09 Dose: 10 mg Ciprofloxacin (Cipro) 250 mg PO BID [facility]; Protocol Last Admin: 07/29/18 10:10 Dose: 250 mg Dextrose (Dextrose 50% Inj) 0 ml IV STAT PRN; Protocol PRN Reason: Hypoglycemia Protocol Dextrose (Glutose 15) 0 gm PO ONCE PRN; Protocol PRN Reason: Hypoglycemia Protocol Docusate Sodium (Colace) 100 mg PO BID [facility] Last Admin: 07/29/18 10:09 Dose: 100 mg Furosemide (Lasix) 20 mg PO DAILY [facility] Last Admin: 07/29/18 10:09 Dose: 20 mg Glucagon (Glucagen Diagnostic Kit) 0 mg IM STAT PRN; Protocol PRN Reason: Hypoglycemia Protocol Heparin Sodium (Porcine) (Heparin) 5,000 units SC Q8 [facility] Last Admin: 07/29/18 05:47 Dose: 5,000 units Dextrose (Dextrose 5% In Water 1000 Ml) 1,000 mls @ 0 mls/hr IV .Q0M PRN; Protocol PRN Reason: Hypoglycemia Protocol Insulin Glargine (Lantus) 50 unit SC HS [facility] Insulin Human Regular (Novolin R) 0 unit SC ACHS [facility]; Protocol Last Admin: 07/29/18 12:25 Dose: 4 units Lactulose (Enulose) 20 gm PO HS [facility] Last Admin: 07/28/18 22:25 Dose: 20 gm Morphine Sulfate (Morphine) 4 mg IV Q6 PRN PRN Reason: Pain, severe (8-10) Last Admin: 07/24/18 18:14 Dose: 4 mg Pantoprazole Sodium (Protonix Ec Tab) 40 mg PO DAILY [facility] Last Admin: 07/29/18 10:09 Dose: 40 mg Polyethylene Glycol (Miralax) 17 gm PO BID [facility] Last Admin: 07/29/18 10:11 Dose: 17 gm Sodium Chloride (Sodium Chloride Tab) 1 gm PO DAILY [facility] Last Admin: 07/29/18 11:00 Dose: 1 gm - Labs Labs: 07/28/18 06:48 07/29/18 11:25 PT 13.8 SECONDS (9.7-12.2) H 07/28/18 11:29 INR 1.3 07/28/18 11:29 - Constitutional Appears: Non-toxic, Chronically Ill - Head Exam Head Exam: ATRAUMATIC, NORMAL INSPECTION - Eye Exam Eye Exam: EOMI - ENT Exam ENT Exam: Mucous Membranes Moist - Neck Exam Neck Exam: Full ROM - Respiratory Exam Respiratory Exam: NORMAL BREATHING PATTERN. absent: Decreased Breath Sounds - GI/Abdominal Exam GI & Abdominal Exam: Soft. absent: Tenderness - Neurological Exam Neurological Exam: Alert, Awake Assessment and Plan - Assessment and Plan (Free Text) Assessment: hyponatremia suspected due to excess hypotonic fluid fluid restrict continue lasix ok for d/c from renal with f/u in office in next week
--- NOTE | 2018-07-29 15:11 | CP.PCM.DIS ---
<Akash Metzger - Last Filed: 07/29/18 14:59> Provider - Provider Date of Admission: 07/23/18 15:56 Attending physician: Felix More MD Consults: 07/24/18 14:31 Nephrology Consult Routine Comment: Consulting Provider: Reggie Dominguez Consulting Physician: Reggie Dominguez Reason for Consult: please eval and tx pt with hyponatremia 07/27/18 13:58 Pastoral Care Referral Routine Comment: Physician Instructions: Reason For Exam: nonambulatory 8 yrs, depression, losing independen 07/28/18 14:00 Physician Consult Routine Comment: Consulting Provider: Ar Carlson Consulting Physician: Ar Carlson Reason for Consult: transaminitis, unclear etiology; hyponatremic Time Spent in preparation of Discharge (in minutes): 40 Hospital Course - Lab Results Lab Results: Micro Results 07/24/18 16:13 Blood Blood Culture - Preliminary NO GROWTH AFTER 4 DAYS 07/24/18 16:13 Blood Blood Culture - Preliminary NO GROWTH AFTER 4 DAYS 07/23/18 21:17 Urine Urine Culture - Final 50-100,000 CFU/ML. MULTIPLE SPECIES. SUGGEST REPEAT SPECIMEN. Most Recent Lab Values WBC 11.6 K/uL (4.8-10.8) H 07/28/18 06:48 RBC 3.85 Mil/uL (3.80-5.20) 07/28/18 06:48 Hgb 11.2 g/dL (11.0-16.0) 07/28/18 06:48 Hct 34.1 % (34.0-47.0) 07/28/18 06:48 MCV 88.5 fL (81.0-99.0) 07/28/18 06:48 MCH 29.1 pg (27.0-31.0) 07/28/18 06:48 MCHC 32.8 g/dL (33.0-37.0) L 07/28/18 06:48 RDW 13.2 % (11.5-14.5) 07/28/18 06:48 Plt Count 323 K/uL (130-400) 07/28/18 06:48 MPV 8.7 fL (7.2-11.7) 07/28/18 06:48 Neut % (Auto) 63.9 % (50.0-75.0) 07/28/18 06:48 Lymph % (Auto) 20.4 % (20.0-40.0) 07/28/18 06:48 Esmeralda % (Auto) 12.3 % (0.0-10.0) H 07/28/18 06:48 Eos % (Auto) 2.6 % (0.0-4.0) 07/28/18 06:48 Baso % (Auto) 0.8 % (0.0-2.0) 07/28/18 06:48 Neut # (Auto) 7.4 K/uL (1.8-7.0) H 07/28/18 06:48 Lymph # (Auto) 2.4 K/uL (1.0-4.3) 07/28/18 06:48 Esmeralda # (Auto) 1.4 K/uL (0.0-0.8) H 07/28/18 06:48 Eos # (Auto) 0.3 K/uL (0.0-0.7) 07/28/18 06:48 Baso # (Auto) 0.1 K/uL (0.0-0.2) 07/28/18 06:48 PT 13.8 SECONDS (9.7-12.2) H 07/28/18 11:29 INR 1.3 07/28/18 11:29 Sodium 126 mmol/L (132-148) L 07/29/18 11:25 Potassium 4.8 mmol/L (3.6-5.2) 07/29/18 11:25 Chloride 92 mmol/L (98-107) L 07/29/18 11:25 Carbon Dioxide 23 mmol/L (22-30) 07/29/18 11:25 Anion Gap 16 (10-20) 07/29/18 11:25 BUN 16 mg/dL (7-17) 07/29/18 11:25 Creatinine 0.7 mg/dL (0.7-1.2) 07/29/18 11:25 Est GFR ( Amer) > 60 07/29/18 11:25 Est GFR (Non-Af Amer) > 60 07/29/18 11:25 POC Glucose (mg/dL) 244 mg/dL (65-110) H 07/29/18 11:10 Random Glucose 235 mg/dL (65-105) H 07/29/18 11:25 Hemoglobin A1c 7.2 % (4.2-6.5) H 07/28/18 11:29 Serum Osmolality 270 mosm/kg (272-300) L 07/26/18 06:58 Uric Acid 4.9 mg/dL (2.2-7.5) 07/27/18 06:32 Calcium 8.7 mg/dl (8.6-10.4) 07/29/18 11:25 Total Bilirubin 0.7 mg/dL (0.2-1.3) 07/29/18 11:25 AST 138 U/L (14-36) H 07/29/18 11:25 ALT 143 U/L (9-52) H 07/29/18 11:25 Alkaline Phosphatase 132 U/L (38-126) H 07/29/18 11:25 Ammonia 16 umol/L (9-33) 07/28/18 11:29 Total Creatine Kinase 75 U/L (30-135) 07/23/18 14:09 Total Protein 8.2 g/dL (6.3-8.3) 07/29/18 11:25 Albumin 3.8 g/dL (3.5-5.0) 07/29/18 11:25 Globulin 4.3 gm/dL (2.2-3.9) H 07/29/18 11:25 Albumin/Globulin Ratio 0.9 (1.0-2.1) L 07/29/18 11:25 Urine Color Yellow (YELLOW) 07/23/18 21:17 Urine Clarity Hazy (Clear) 07/23/18 21:17 Urine pH 5.0 (5.0-8.0) 07/23/18 21:17 Ur Specific Doland 1.013 (1.003-1.030) 07/23/18 21:17 Urine Protein 1+ mg/dL (NEGATIVE) H 07/23/18 21:17 Urine Glucose (UA) Normal mg/dL (Normal) 07/23/18 21:17 Urine Ketones Negative mg/dL (NEGATIVE) 07/23/18 21:17 Urine Blood 1+ (NEGATIVE) H 07/23/18 21:17 Urine Nitrate Negative (NEGATIVE) 07/23/18 21:17 Urine Bilirubin Negative (NEGATIVE) 12/13/18 21:17 Urine Urobilinogen 4.0 mg/dL (0.2-1.0) H 07/23/18 21:17 Ur Leukocyte Esterase 3+ Charli/uL (Negative) H 07/23/18 21:17 Urine WBC (Auto) 63 /hpf (0-5) H 07/23/18 21:17 Urine RBC (Auto) 21 /hpf (0-3) H 07/23/18 21:17 Ur Squamous Epith Cells 10 /hpf (0-5) H 07/23/18 21:17 Urine Bacteria Rare (<OCC) 07/23/18 21:17 Urine Osmolality 228 mosm/kg (300-1000) L 07/28/18 11:25 Ur Random Sodium 34 mmol/L 07/28/18 11:25 Hepatitis A IgM Ab Negative (NEGATIVE) 07/28/18 11:29 Hep Bs Antigen Negative (NEGATIVE) 07/28/18 11:29 Hep B Core IgM Ab Negative (NEGATIVE) 07/28/18 11:29 Hepatitis C Antibody Negative (NEGATIVE) 07/28/18 11:29 - Hospital Course Hospital Course: HPI: Patient is a 67 year old female with a past medical history of chronic back pain secondary to bulging/herniated discs, diabetes mellitus, diabetic neuropathy, hypertension, asthma who presents to the ED today at the request of her primary care doctor for back pain status post fall off bed 2 weeks ago. Patient reports that she fell off her bed onto a carpeted floor 2 weeks ago onto her entire body, including right shoulder, hitting her head. Patient denies loss of consciousness, however reports increasing right shoulder/lumbar back pain radiating bilaterally, and shooting pains from low back to toes bilaterally. Daughter reports since fall, her mother has new onset urinary incontinence and is altered from baseline. Denies headaches, chest pain, shortness of breath, nausea, vomiting, dysuria, diarrhea. During hospital course: Xray of the shoulder and hip/pelvis were negative for any acute fractures. Component of pain is likely chronic in nature. Patient has chronic back pain with history of bulging discs and spinal stenosis. Patient was given oxycodone and toradol for pain with morphine as needed. Patient also presented with hyponatremia, initially thought to be likely secondary to SIADH. Nephrology (Dr. Dalton) was consulted. Per Nephro recommendations, patient was PO fluid rest ricted and given salt tablets and lasix. NSAIDs such as toradol were avoided and urine osmolality and sodium levels were monitored. Per further recommendations, hyponatremia was suspected due to excess hypotonic fluid intake. Patient was fluid restricted, continued on lasix. Transaminitis of unknown etiology was noted during hospital course. Hepatitis panel was negative and ammonia level was within normal limits. Abdominal ultrasound demonstrated hepatomegaly with diffuse increased echogenicity suggestive of hepatic steatosis vs. other hepatic diffuse parenchymal pathology. No dilated ducts or focal liver masses. No extrahepatic suspect dilated ducts or choledocholithiasis appreciated. No gross ascites seen. GI (Dr. Carlson) was consulted. Outpatient medications reviewed which contained several hepatotoxic medications. Transaminitis was likely drug induced. Tinazidine was the most likely culprit and stopped. Enzymes slowly improved. Patient is medically stable for discharge to subacute rehab, as per Dr. More. She is instructed to take medications as prescribed. Patient will take 50 units of Lantus at night with incremental increase to home dosage of 80 units as needed. Patient has been instructed to avoid hepatoxic medical agents (muscle relaxants, statins), as her liver function panel was abnormally high. Continue to monitor liver function testing weekly and follow up with GI as needed in the outpatient setting. Patient's sodium continues to be low, today 126 with a correction of 128. Findings were discussed with Nephrology, likely due to excessive water intake. Patient instructed to restrict water intake and continue with Lasix as prescribed. Continue to monitor sodium level and follow up with Nephrology as needed in outpatient setting. Patient has chronic back pain with history of bulging discs and spinal stenosis. Long discussion was had with patient's daughter. Patient has been followed by pain management and Orthopedic Surgery and has had MRIs done in the past, with nonsurgical intervention recommended. Patient's daughter is amenable with discharge plan to subacute rehab to improve her mobility and conditioning. Patient has new onset wrist tenderness from IV site that began yesterday. She was instructed to elevate arm periodically as needed and use warm compresses to help manage tenderness. The following is a summary of hospital course. For full detail, please refer to EMR. - Date & Time of H&P Date of H&P: 07/29/18 Time of H&P: 14:59 Discharge Exam - Head Exam Head Exam: ATRAUMATIC, NORMAL INSPECTION, NORMOCEPHALIC - Eye Exam Eye Exam: EOMI, Normal appearance, PERRL Pupil Exam: NORMAL ACCOMODATION - ENT Exam ENT Exam: Mucous Membranes Moist, Normal Exam - Neck Exam Neck exam: Full Rom, Normal Inspection - Respiratory Exam Respiratory Exam: Clear to PA & Lateral, NORMAL BREATHING PATTERN, UNREMARKABLE. absent: Accessory Muscle Use, Wheezes, Respiratory Distress, Stridor - Cardiovascular Exam Cardiovascular Exam: REGULAR RHYTHM, +S1, +S2 - GI/Abdominal Exam GI & Abdominal Exam: Soft, Unremarkable. absent: Firm, Guarding, Organomegaly, Rebound, Rigid Additional comments: morbidly obese - Extremities Exam Extremities exam: normal capillary refill, normal inspection, pedal pulses present - Back Exam Back exam: NORMAL INSPECTION, tenderness (chronic) - Neurological Exam Neurological exam: Alert, CN II-XII Intact, Oriented x3 - Psychiatric Exam Psychiatric exam: Depressed - Skin Skin Exam: Dry, Intact, Normal Color, Warm Discharge Plan - Discharge Medications Prescriptions: RX: Losartan [Cozaar] 25 mg PO DAILY #30 tab - Follow Up Plan Condition: STABLE Disposition: REHAB FACILITY/REHAB UNIT Instructions: Upper Back Pain (DC), Hyponatremia (DC), Nonalcoholic Fatty Liver Disease (DC), Losartan Additional Instructions: Patient is medically stable for discharge to subacute rehab, as per DR. More. She is instructed to take medications as prescribed. Patient will take 50 units of Lantus at night with incremental increase to home dosage of 80 units as needed. Patient has been instructed to avoid hepatoxic medical agents (muscle relaxants, statins), as her liver function panel was abnormally high. Continue to monitor liver function testing weekly and follow up with GI as needed in the outpatient setting. Patient's sodium continues to be low, today 126 with a correction of 128. Findings were discussed with Nephrology, likely due to excessive water intake. Patient instructed to restrict water intake and continue with Lasix as prescribed. Continue to monitor sodium level and follow up with Nephrology as needed in outpatient setting. Patient has chronic back pain with history of bulging discs and spinal stenosis. Long discussion was had with patient's daughter. Patient has been followed by pain management and O rthopedic Surgery and has had MRIs done in the past, with nonsurgical intervention recommended. Patient's daughter is amenable with discharge plan to subacute rehab to improve her mobility and conditioning. Patient has new onset wrist tenderness from IV site that began yesterday. She was instructed to elevate arm periodically as needed and use warm compresses to help manage tenderness. <Felix More - Last Filed: 07/29/18 16:59> Provider - Provider Date of Admission: 07/23/18 15:56 Attending physician: Felix More MD Consults: 07/24/18 14:31 Nephrology Consult Routine Comment: Consulting Provider: Reggie Dominguez Consulting Physician: Reggie Dominguez Reason for Consult: please eval and tx pt with hyponatremia 07/27/18 13:58 Pastoral Care Referral Routine Comment: Physician Instructions: Reason For Exam: nonambulatory 8 yrs, depression, losing independen 07/28/18 14:00 Physician Consult Routine Comment: Consulting Provider: Ar Carlson Consulting Physician: Ar Carlson Reason for Consult: transaminitis, unclear etiology; hyponatremic Hospital Course - Lab Results Lab Results: Micro Results 07/24/18 16:13 Blood Blood Culture - Final NO GROWTH AFTER 5 DAYS 07/24/18 16:13 Blood Gram Stain - Final TEST NOT PERFORMED 07/24/18 16:13 Blood Blood Culture - Final NO GROWTH AFTER 5 DAYS 07/24/18 16:13 Blood Gram Stain - Final TEST NOT PERFORMED 07/23/18 21:17 Urine Urine Culture - Final 50-100,000 CFU/ML. MULTIPLE SPECIES. SUGGEST REPEAT SPECIMEN. Most Recent Lab Values WBC 11.6 K/uL (4.8-10.8) H 07/28/18 06:48 RBC 3.85 Mil/uL (3.80-5.20) 07/28/18 06:48 Hgb 11.2 g/dL (11.0-16.0) 07/28/18 06:48 Hct 34.1 % (34.0-47.0) 07/28/18 06:48 MCV 88.5 fL (81.0-99.0) 07/28/18 06:48 MCH 29.1 pg (27.0-31.0) 07/28/18 06:48 MCHC 32.8 g/dL (33.0-37.0) L 07/28/18 06:48 RDW 13.2 % (11.5-14.5) 07/28/18 06:48 Plt Count 323 K/uL (130-400) 07/28/18 06:48 MPV 8.7 fL (7.2-11.7) 07/28/18 06:48 Neut % (Auto) 63.9 % (50.0-75.0) 07/28/18 06:48 Lymph % (Auto) 20.4 % (20.0-40.0) 07/28/18 06:48 Esmeralda % (Auto) 12.3 % (0.0-10.0) H 07/28/18 06:48 Eos % (Auto) 2.6 % (0.0-4.0) 07/28/18 06:48 Baso % (Auto) 0.8 % (0.0-2.0) 07/28/18 06:48 Neut # (Auto) 7.4 K/uL (1.8-7.0) H 07/28/18 06:48 Lymph # (Auto) 2.4 K/uL (1.0-4.3) 07/28/18 06:48 Esmeralda # (Auto) 1.4 K/uL (0.0-0.8) H 07/28/18 06:48 Eos # (Auto) 0.3 K/uL (0.0-0.7) 07/28/18 06:48 Baso # (Auto) 0.1 K/uL (0.0-0.2) 07/28/18 06:48 PT 13.8 SECONDS (9.7-12.2) H 07/28/18 11:29 INR 1.3 07/28/18 11:29 Sodium 126 mmol/L (132-148) L 07/29/18 11:25 Potassium 4.8 mmol/L (3.6-5.2) 07/29/18 11:25 Chloride 92 mmol/L (98-107) L 07/29/18 11:25 Carbon Dioxide 23 mmol/L (22-30) 07/29/18 11:25 Anion Gap 16 (10-20) 07/29/18 11:25 BUN 16 mg/dL (7-17) 07/29/18 11:25 Creatinine 0.7 mg/dL (0.7-1.2) 07/29/18 11:25 Est GFR ( Amer) > 60 07/29/18 11:25 Est GFR (Non-Af Amer) > 60 07/29/18 11:25 POC Glucose (mg/dL) 262 mg/dL (65-110) H 07/29/18 16:04 Random Glucose 235 mg/dL (65-105) H 07/29/18 11:25 Hemoglobin A1c 7.2 % (4.2-6.5) H 07/28/18 11:29 Serum Osmolality 270 mosm/kg (272-300) L 07/26/18 06:58 Uric Acid 4.9 mg/dL (2.2-7.5) 07/27/18 06:32 Calcium 8.7 mg/dl (8.6-10.4) 07/29/18 11:25 Total Bilirubin 0.7 mg/dL (0.2-1.3) 07/29/18 11:25 AST 138 U/L (14-36) H 07/29/18 11:25 ALT 143 U/L (9-52) H 07/29/18 11:25 Alkaline Phosphatase 132 U/L (38-126) H 07/29/18 11:25 Ammonia 16 umol/L (9-33) 07/28/18 11:29 Total Creatine Kinase 75 U/L (30-135) 07/23/18 14:09 Total Protein 8.2 g/dL (6.3-8.3) 07/29/18 11:25 Albumin 3.8 g/dL (3.5-5.0) 07/29/18 11:25 Globulin 4.3 gm/dL (2.2-3.9) H 07/29/18 11:25 Albumin/Globulin Ratio 0.9 (1.0-2.1) L 07/29/18 11:25 Urine Color Yellow (YELLOW) 07/23/18 21:17 Urine Clarity Hazy (Clear) 07/23/18 21:17 Urine pH 5.0 (5.0-8.0) 07/23/18 21:17 Ur Specific Doland 1.013 (1.003-1.030) 07/23/18 21:17 Urine Protein 1+ mg/dL (NEGATIVE) H 07/23/18 21:17 Urine Glucose (UA) Normal mg/dL (Normal) 07/23/18 21:17 Urine Ketones Negative mg/dL (NEGATIVE) 07/23/18 21:17 Urine Blood 1+ (NEGATIVE) H 07/23/18 21:17 Urine Nitrate Negative (NEGATIVE) 07/23/18 21:17 Urine Bilirubin Negative (NEGATIVE) 07/23/18 21:17 Urine Urobilinogen 4.0 mg/dL (0.2-1.0) H 07/23/18 21:17 Ur Leukocyte Esterase 3+ Charli/uL (Negative) H 07/23/18 21:17 Urine WBC (Auto) 63 /hpf (0-5) H 07/23/18 21:17 Urine RBC (Auto) 21 /hpf (0-3) H 07/23/18 21:17 Ur Squamous Epith Cells 10 /hpf (0-5) H 07/23/18 21:17 Urine Bacteria Rare (<OCC) 07/23/18 21:17 Urine Osmolality 228 mosm/kg (300-1000) L 07/28/18 11:25 Ur Random Sodium 34 mmol/L 07/28/18 11:25 Hepatitis A IgM Ab Negative (NEGATIVE) 07/28/18 11:29 Hep Bs Antigen Negative (NEGATIVE) 07/28/18 11:29 Hep B Core IgM Ab Negative (NEGATIVE) 07/28/18 11:29 Hepatitis C Antibody Negative (NEGATIVE) 07/28/18 11:29 Attending/Attestation - Attestation I have personally seen and examined this patient.: Yes I have fully participated in the care of the patient.: Yes I have reviewed all pertinent clinical information, including history, physical exam and plan: Yes Notes (Text): Seen and examined with the resident. spoke to Mass Spectrometry Specialist Dr Lewis about her low sodium. patient's na is likely due to drinking excess water. unlikely SIADH.Recommend 07/29/18 16:56
[2018-07-29 15:50] VITALS: BP 169/66; PULSE 85; TEMP 98.2; O2SAT 98
== END 2018-07-29 17:00 | DRG 552 ==
LOC: C.ER 12:59 → C.9E 15:56 → C.3T 16:19
PROVIDERS: ADMIT Internal Medicine; ATTEND Internal Medicine
DX: M48.00 Spinal stenosis, site unspecified (principal); Z68.42 Body mass index [BMI] 45.0-49.9, adult; E22.2 Syndrome of inappropriate secretion of antidiuretic hormone; J45.901 Unspecified asthma with (acute) exacerbation; G89.29 Other chronic pain; I10 Essential (primary) hypertension; E66.01 Morbid (severe) obesity due to excess calories; E11.40 Type 2 diabetes mellitus with diabetic neuropathy, unspecified; G47.33 Obstructive sleep apnea (adult) (pediatric); K59.00 Constipation, unspecified; R32 Unspecified urinary incontinence; Z79.4 Long term (current) use of insulin; M19.90 Unspecified osteoarthritis, unspecified site